=== PATIENT | female | born 1950 | race Hispanic/Latino ===

== ENCOUNTER 2016-08-19 14:30 | Emergency (ER) | payer MEDICARE, MEDICAID ==
[2015-12-09 09:30] VITALS: BMI 15.7
== END 2016-08-19 16:00 | disposition left against medical advice (07) ==
LOC: ED 14:30
DX: R53.1 Weakness (principal)

== ENCOUNTER 2016-10-02 00:08 | Emergency (ER) | payer MEDICARE, MEDICAID ==
[2016-10-02 00:18] VITALS: BMI 23.0
--- NOTE | 2016-10-02 01:06 | ED PDOC ---
Arrival/HPI - General Chief Complaint: Psychiatric Evaluation Time Seen by Provider: 10/02/16 00:49 Historian: Patient, Family - History of Present Illness Narrative History of Present Illness (Text): 10/02/16 01:05 Katerina Rico is a 66 year old female, whose past medical history includes schizophrenia, tardive dyskinesia with psychogenic polydipsia, and COPD, who presents to the Emergency department brought in by EMS from home for further evaluation. As per from collateral information from family, patient has been non -compliant with her psychiatric medications. Patient when questioned states she feels fine and denies any other somatic complaints. Patient is difficult to understand at times secondary to tardive dyskinesia. Symptom Onset: Gradual Symptom Course: Unchanged Activities at Onset: Light Context: Home Past Medical History - Provider Review Nursing Documentation Reviewed: Yes - Infectious Disease Hx of Infectious Diseases: None - Tetanus Immunization Tetanus Immunization: Unknown - Cardiac Hx Pacemaker: No - Neurological Hx Paralysis: No - Hematological/Oncological Hx Blood Transfusions: No - Musculoskeletal/Rheumatological Hx Musculoskeletal Disorders: Yes (TARDIVE DYSKINESIA) - Psychiatric Hx Emotional Abuse: No Hx Physical Abuse: No Hx Substance Use: No - Past Surgical History Past Surgical History: No Previous - Anesthesia Hx Anesthesia Reactions: No Hx Malignant Hyperthermia: No - Suicidal Assessment Feels Threatened In Home Enviroment: No Family/Social History - Physician Review Nursing Documentation Reviewed: Yes Family/Social History: Unknown Family HX Smoking Status: Heavy Smoker > 10 Cigarettes Daily Hx Alcohol Use: Yes (BEER ON OCCASION) Hx Substance Use: No Hx Substance Use Treatment: No Allergies/Home Meds Allergies/Adverse Reactions: Allergies codeine Allergy (Verified 12/09/15 09:48) RASH flu shot Allergy (Uncoded 12/09/15 09:48) RASH Home Medications: Home Meds Medication Instructions Recorded Confirmed Acetaminophen [Tylenol] 2 tab PO QID 11/11/14 12/09/15 Paroxetine HCl [Paxil] 40 mg PO DAILY 12/09/15 12/09/15 Risperidone [Risperdal] 3 mg PO HS 12/09/15 12/09/15 Review of Systems - Physician Review All systems were reviewed & negative as marked: Yes - Review of Systems Constitutional: Normal. absent: Fevers Eyes: Normal ENT: Normal Respiratory: Normal. absent: SOB, Cough Cardiovascular: Normal. absent: Chest Pain Gastrointestinal: Normal. absent: Abdominal Pain, Diarrhea, Nausea, Vomiting Genitourinary Female: Normal. absent: Dysuria, Frequency, Hematuria, Urine Output Changes Musculoskeletal: Normal. absent: Back Pain, Neck Pain Skin: Normal. absent: Rash Neurological: Normal. absent: Headache, Dizziness Endocrine: Normal Hemo/Lymphatic: Normal Psychiatric: Other (+non-compliant with psych meds) Physical Exam Vital Signs Reviewed: Yes Vital Signs Temp Pulse Resp BP Pulse Ox 10/02/16 00:28 98.4 F 87 17 115/65 96 Temperature: Afebrile Blood Pressure: Normal Pulse: Regular Respiratory Rate: Normal Appearance: Positive for: Well-Appearing, Non-Toxic, Comfortable, Unkept Pain Distress: None Mental Status: Positive for: Alert and Oriented X 3 - Systems Exam Head: Present: Atraumatic, Normocephalic Pupils: Present: PERRL Extroacular Muscles: Present: EOMI Conjunctiva: Present: Normal Mouth: Present: Moist Mucous Membranes Neck: Present: Normal Range of Motion Respiratory/Chest: Present: Clear to Auscultation, Good Air Exchange. No: Respiratory Distress, Accessory Muscle Use Cardiovascular: Present: Regular Rate and Rhythm, Normal S1, S2. No: Murmurs Abdomen: Present: Normal Bowel Sounds. No: Tenderness, Distention, Peritoneal Signs Upper Extremity: Present: Normal Inspection. No: Cyanosis, Edema Lower Extremity: Present: Normal Inspection. No: Edema Neurological: Present: GCS=15, CN II-XII Intact, Other (Tardive dyskinesia) Skin: Present: Warm, Dry, Normal Color. No: Rashes Psychiatric: Present: Alert, Oriented x 3 Medical Decision Making ED Course and Treatment: 10/02/16 01:05 Impression: 66 year old female brought in by EMS for non-compliance with psychiatric medication. Plan: -- EKG -- Chest X-ray -- Labs, alcohol level -- Urine drug screen -- Reassess and disposition Prior Visits: Notes and results from previous visits were reviewed. On 08/19/2016, pt was seen in the Emergency department for weakness s/p fall. Pt left against medical advice. Progress Notes: Reviewed EKG, NSR at 76 bpm. Prolonged QT. Non-specific ST/T wave changes. 10/02/16 01:43 Reviewed radiology, Chest X-ray shows no acute processes. 10/02/16 04:07 Pt seen and evaluated by PES screener Jeanette. Pt for psych re-evaluation in the AM as well as APS consult. 10/02/16 07:00 Case endorsed to pending PES evaluation/APS consult. - Lab Interpretations Lab Results: 10/02/16 03:15 10/02/16 03:15 Lab Results 10/02/16 03:15: Urine Opiates Screen Negative, Urine Methadone Screen Negative, Ur Barbiturates Screen Negative, Ur Phencyclidine Scrn Negative, Ur Amphetamines Screen Negative, U Benzodiazepines Scrn Negative, U Oth Cocaine Metabols Negative, U Cannabinoids Screen Negative 10/02/16 03:15: Alcohol, Quantitative < 10 10/02/16 03:15: WBC 8.3 D, RBC 4.01, Hgb 11.2 L, Hct 32.9 L, MCV 82.0, MCH 27.9 , MCHC 34.0, RDW 14.3, Plt Count 234, MPV 8.1 10/02/16 03:15: Sodium 134, Potassium 3.3 L, Chloride 99, Carbon Dioxide 29, Anion Gap 9 L, BUN 7, Creatinine 0.5, Est GFR ( Amer) > 60, Est GFR (Non- Af Amer) > 60, Random Glucose 80, Calcium 9.0, Total Bilirubin 0.9, AST 33, ALT 51, Alkaline Phosphatase 69, Total Protein 5.7 L, Albumin 3.1, Globulin 2.6, Albumin/Globulin Ratio 1.2 I have reviewed the lab results: Yes - RAD Interpretation Radiology Orders: 10/02/16 00:58 CHEST PORTABLE [RAD] Stat Major Gifts Director: ED Physician - EKG Interpretation Interpreted by ED Physician: Yes Type: 12 lead EKG - Scribe Statement The provider has reviewed the documentation as recorded by the Mary Yin Provider Scribe Attestation: All medical record entries made by the Scribe were at my direction and personally dictated by me. I have reviewed the chart and agree that the record accurately reflects my personal performance of the history, physical exam, medical decision making, and the department course for this patient. I have also personally directed, reviewed, and agree with the discharge instructions and disposition. Disposition/Present on Arrival - Present on Arrival Any Indicators Present on Arrival: No History of DVT/PE: No History of Uncontrolled Diabetes: No Urinary Catheter: No History of Decub. Ulcer: No History Surgical Site Infection Following: None - Disposition Have Diagnosis and Disposition been Completed?: No Diagnosis: Schizophrenia Disposition Time: 07:00 Condition: STABLE Forms: [facility] ([place])
[2016-10-02 03:49] LABS: HEMOGLOBIN 11.2 g/dL (12.0-16.0); MEAN CORPUSCULAR HEMOGLOBIN 27.9 pg (25.0-35.0); MEAN PLATELET VOLUME 8.1 fl (7.0-11.0); RBC 4.01 10^6/uL (3.5-6.1); RED CELL DISTRIBUTION WIDTH 14.3 % (11.5-14.5); WHITE BLOOD COUNT 8.3 10^3/ul (4.5-11.0)
[2016-10-02 03:50] LABS: ALB/GLOB RATIO 1.2 (1.1-1.8); ALBUMIN 3.1 g/dL (3.0-4.8); ALT/SGPT 51 U/L (7-56); AST/SGOT 33 U/L (15-39); BLOOD UREA NITROGEN 7 mg/dL (7-21); GFR AFRICAN-AMERICAN > 60; GFR NON-AFRICAN AMERICAN > 60
[2016-10-02 04:04] LABS: BARBITURATES, UR NEGATIVE (NEGATIVE); BENZODIAZEPINES, UR NEGATIVE (NEGATIVE); OPIATES, UR NEGATIVE (NEGATIVE); PHENCYCLIDINE, UR NEGATIVE (NEGATIVE)
[2016-10-02 08:21] VITALS: RESP 16
--- NOTE | 2016-10-02 08:54 | RAD ---
HISTORY: medical clearance COMPARISON: 08/24/2014 FINDINGS: LUNGS: No active pulmonary disease. PLEURA: No significant pleural effusion identified, no pneumothorax apparent. CARDIOVASCULAR: Normal. OSSEOUS STRUCTURES: No significant abnormalities. VISUALIZED UPPER ABDOMEN: Normal. OTHER FINDINGS: None. IMPRESSION: No active disease.
[2016-10-02 12:46] VITALS: BP 103/71; TEMP 98; O2SAT 98
[2016-10-02 13:19] VITALS: PULSE 82
--- NOTE | 2016-10-02 16:00 | CARD ---
APPROVED REPORT EKG Measurement Heart [id number] <Conclusion> Normal sinus rhythm Possible Left atrial enlargement Prolonged QT Abnormal ECG
== END 2016-10-02 13:19 | disposition home or self-care (01) ==
LOC: ED 00:08
DX: F20.9 Schizophrenia, unspecified (principal)
CPT/HCPCS: 71010; 80053; 85027; 90791; 93005; 99285; G0480

== ENCOUNTER 2017-08-18 17:12 | Emergency (ER) | payer MEDICARE, MEDICAID ==
[2017-08-18 17:15] VITALS: BMI 23.0
[2017-08-18 17:35] VITALS: RESP 18; TEMP 98.4
--- NOTE | 2017-08-18 17:41 | ED PDOC ---
Arrival/HPI - General Historian: Patient EM Caveat: Language Barrier (difficult speech due to tardive dyskinesia) - History of Present Illness Time/Duration: Prior to Arrival Symptom Onset: Sudden Severity Level: Mild Activities at Onset: Other (sitting on wet stool and slipped off) - General Chief Complaint: Trauma Time Seen by Provider: 08/18/17 17:40 - History of Present Illness Narrative History of Present Illness (Text): 08/18/17 19:27 66 yo F with PMH of Osteoarthritis, COPD, schizophrenia, and tardive dyskinesia who presents s/p mechanical fall from wet stool with head trauma and laceration. HPI limited due to speech impediment from tardive dyskinesia. Reports went to sit down on a stool, not realizing it was wet, and when she stopped supporting her weight as she sat, she slide off the stool, fell forward , and struck the left side of her head. Denies LOC, confusion, lack of memories. Reports able to stand with support, EMS called and patient brought to Emergency department. Reports bleeding from laceration site, some oozing from laceration witnessed during exam. Denies vision changes, loss of vision, nausea, emesis, room-spinning, chest pain, shortness of breath, loss of bowel/ bladder control, paresthesias, or focal weakness. Has baseline tardive dyskinesias, witness throughout exam, mostly manifests as chronically changing leg positions. All other ROS in 12-system review negative. PMH: as above PSH: denies Fam Hx: unknown Soc Hx: 1ppd > 50 yrs, denies EtOH, denies illicits PMD: Dr. Robins ([facility]) Past Medical History - Provider Review Nursing Documentation Reviewed: Yes - Infectious Disease Hx of Infectious Diseases: None - Tetanus Immunization Tetanus Immunization: Unknown - Cardiac Hx Pacemaker: No - Pulmonary Hx Tuberculosis: No - Neurological Hx Paralysis: No - Hematological/Oncological Hx Blood Transfusions: No - Musculoskeletal/Rheumatological Hx Musculoskeletal Disorders: Yes (TARDIVE DYSKINESIA) - Genitourinary/Gynecological Hx Sexually Transmitted Diseases: No - Psychiatric Hx Anxiety: Yes Hx Depression: Yes Hx Substance Use: No - Past Surgical History Past Surgical History: No Previous - Anesthesia Hx Anesthesia Reactions: No Hx Malignant Hyperthermia: No - Suicidal Assessment Feels Threatened In Home Enviroment: No Family/Social History - Physician Review Nursing Documentation Reviewed: Yes Family/Social History: Unknown Family HX Smoking Status: Heavy Smoker > 10 Cigarettes Daily Hx Alcohol Use: Yes (BEER ON OCCASION) Hx Substance Use: No Hx Substance Use Treatment: No Allergies/Home Meds Allergies/Adverse Reactions: Allergies codeine Allergy (Verified 08/18/17 17:20) RASH flu shot Allergy (Uncoded 08/18/17 17:20) RASH Home Medications: Home Meds Medication Instructions Recorded Confirmed Paroxetine HCl [Paxil] 40 mg PO DAILY 12/09/15 08/18/17 Risperidone [Risperdal] 3 mg PO HS 12/09/15 08/18/17 Review of Systems - Review of Systems Constitutional: Normal. absent: Fatigue, Fevers Eyes: Normal. absent: Vision Changes, Photophobia, Eye Pain ENT: Normal. absent: Hearing Changes, Sore Throat, Rhinorrhea, Epistaxis, Sinus Congestion Respiratory: Normal. absent: SOB, Cough Cardiovascular: Normal. absent: Chest Pain, Palpitations, RODRIGUEZ, Syncope Gastrointestinal: Normal. absent: Abdominal Pain, Constipation, Diarrhea, Vomiting, Appetite Changes Genitourinary Female: Normal. absent: Dysuria, Frequency, Hematuria Musculoskeletal: Other (mild head pain, tenderness at site of laceration, mild oozing of bright red blood from forehead laceration) Neurological: Headache (mild headache 2/2 fall with head trauma), Other ( baseline speech impediment 2/2 tardive dyskinesia). absent: Dizziness, Focal Weakness, Facial Droop, Seizure Physical Exam Vital Signs Reviewed: Yes Temperature: Afebrile Blood Pressure: Normal Pulse: Regular Respiratory Rate: Normal Appearance: Positive for: Non-Toxic, Comfortable Pain Distress: Mild Mental Status: Positive for: Alert and Oriented X 3 - Systems Exam Head: Present: Tenderness (as site of laceration), Laceration (small curvilinear laceration intermittently oozing blood, 3-4cm in length), Other (no irma contusions or echymosis appreciated). No: Atraumatic, Normocephalic, Swelling, Ecchymosis Pupils: No: Pinpoint Extroacular Muscles: Present: EOMI Conjunctiva: Present: Normal. No: Injected, Icteric Mouth: Present: Moist Mucous Membranes, Normal Lips, Normal Tounge. No: Dry, Drooling Nose (External): Present: Atraumatic. No: Abrasion, Laceration Nose (Internal): Present: No Active Bleeding. No: Epistaxis Neck: Present: Normal Range of Motion, Trachea Midline. No: MIDLINE TENDERNESS , JVD Respiratory/Chest: Present: Clear to Auscultation, Good Air Exchange. No: Respiratory Distress, Accessory Muscle Use, Wheezes, Rales, Rhonchi, Tachypneic Cardiovascular: Present: Regular Rate and Rhythm, Normal S1, S2, Peripheal Pulses Present (+2 radials bilaterally). No: Murmurs, Irregular Rhythm, Tachycardic, Bradycardic Abdomen: Present: Normal Bowel Sounds. No: Tenderness, Distention Upper Extremity: Present: Normal Inspection, NORMAL PULSES, Other (limited hand ROM 2/2 tardive dyskinedia, otherwise normal ROM). No: Cyanosis, Edema, Tenderness, Swelling, Erythema, Deformity Lower Extremity: Present: Normal Inspection, Normal ROM. No: Edema, CALF TENDERNESS, Cyanosis, Tenderness, Swelling, Erythema, Deformity Neurological: Present: GCS=15, Motor Func Grossly Intact. No: Speech Normal ( limited 2/2 tardive dyskinesia) Skin: Present: Warm, Dry, Normal Color. No: Rashes Lymphatic: No: Cervical Adenopathy Psychiatric: Present: Alert, Oriented x 3 (x4: self, location, year, president) , Normal Insight, Normal Concentration, Normal Affect, Normal Mood Vital Signs Temp Pulse Resp BP Pulse Ox 08/18/17 18:45 78 18 128/79 99 08/18/17 17:30 98.4 F 82 18 108/67 97 Medical Decision Making ED Course and Treatment: 08/18/17 19:49 Ddx: mechanical fall 2/2 wet surface vs 2/2 osteoarthritis, rule out acute intracranial process Patient refusing head CT, only will allow laceration repair, then wants to leave AMA. Please see attached procedure note for further details. Laceration repair completed, patient then left against medical advice. AMA paper filled out, signed by patient, witnessed by nursing. Pt seen, reviewed, and discussed with attending, Dr. Tracey. (Jimy Causey) 08/19/17 08:08 pt [facility]w [facility] s/p mechanicl fall refuses imaging only wants lac repair. advise outpt fu return precautions (Clifford Tracey) - Medication Orders Current Medication Orders: Discontinued Medications Lidocaine/Epinephrine (Lidocaine 1%/Epinephrine [id number] 30 Ml) 30 ml IJ ONCE ONE Stop: 08/18/17 17:51 Last Admin: 08/18/17 18:02 Dose: 30 ml Procedure: Wound Repair - Time Performed Time Performed: 18:30 - Time Out Time Out: Side verified, Site verified, Patient ID confirmed, Sterile procedures obs. - Consent Obtained Consent obtained: Verbal - Performed by Performed by: Mid-level Provider - Indications Indication(s):: Laceration - Location Location:: Left, Lateral, Face Shape:: Curvilinear Dimensions Length cm: 3-4 cm Dimensions width cm: 5mm at widests Depth:: Epidermis - Anesthetic Technique Anesthetic Technique: Local Local/Regional Anesthetic:: Lidocaine 1% w/epi - Wound Examination Wound Examination:: Other (actively slow oozing of blood, no deep structures appreciated, no large bleeding vessels or nerves appreciated on exam) - Debris Debris:: None - Irrigated Irrigated with ml of normal saline: 3 cc normal saline - Complexity Complexity:: Simple (one layer) - Wound repair method Sutures:: # (3), Size (Proline 5-0), Technique (Interrupted) - Complications Complications: None - Patient tolerated procedure Patient Tolerated Procedure:: Well Disposition/Present on Arrival - Present on Arrival Any Indicators Present on Arrival: No History of DVT/PE: No History of Uncontrolled Diabetes: No Urinary Catheter: No History of Decub. Ulcer: No History Surgical Site Infection Following: None - Disposition Have Diagnosis and Disposition been Completed?: Yes Disposition Time: 19:00 - Disposition Diagnosis: Left against medical advice, Head injury, Laceration Disposition: AGAINST MEDICAL ADVICE Condition: GUARDED Discharge Instructions (ExitCare): Closed Head Injury (DC), Head Injury Observation (DC), Leaving Against Medical Advice Additional Instructions: you are declinign ct scan. you are able to return to er with worsening symptoms or concern. Referrals: Dominguez Curry MD [Staff Provider] - Follow up with primary Mateusz Robins MD [Primary Care Provider] - Follow up with primary Forms: [employer] (Persian)
[2017-08-18] MEDS ORDERED: Lidocaine 1%/Epinephrine 1:100000 30 ml vial IJ ONE (17:50)
[2017-08-18 18:46] VITALS: BP 128/79; PULSE 78; O2SAT 99
== END 2017-08-18 18:44 | disposition left against medical advice (07) ==
LOC: ED 17:12
DX: S01.81XA Laceration without foreign body of other part of head, initial encounter (principal); W19.XXXA Unspecified fall, initial encounter; F20.9 Schizophrenia, unspecified; J44.9 Chronic obstructive pulmonary disease, unspecified; F17.210 Nicotine dependence, cigarettes, uncomplicated

== ENCOUNTER 2018-02-28 19:56 | Inpatient (IN) | payer MEDICARE, MEDICAID ==
[2018-02-28 20:26] VITALS: BMI 15.6
[2018-02-28] MEDS ORDERED: Sodium Chloride 0.9% 500 ML IV STA (20:53)
[2018-02-28] MEDS ORDERED: TDAP Vaccine 0.5 mL Syr IM ONE (20:53)
[2018-02-28 21:28] LABS: ALB/GLOB RATIO 1.6 (1.1-1.8); ALBUMIN 4.2 g/dL (3.0-4.8); ALT/SGPT 30 U/L (7-56); AST/SGOT 37 U/L (14-36); BLOOD UREA NITROGEN 21 mg/dL (7-21); CALCIUM 9.5 mg/dL (8.4-10.5); GFR NON-AFRICAN AMERICAN > 60
[2018-02-28 21:33] LABS: BASO % 0.4 % (0.0-3.0); EOS % 1.1 % (1.5-5.0); GRAN % 71.7 % (50.0-68.0); HEMOGLOBIN 13.1 g/dL (12.0-16.0); LYMPH % 15.6 % (22.0-35.0); MEAN CELL VOLUME 84.7 fl (80.0-105.0); MEAN CORPUSCULAR HEMOGLOBIN 28.3 pg (25.0-35.0); MEAN CORPUSCULAR HGB CONC 33.4 g/dl (31.0-37.0); MEAN PLATELET VOLUME 9.2 fl (7.0-11.0); MONO % 11.2 % (1.0-6.0); RBC 4.63 10^6/uL (3.5-6.1); RED CELL DISTRIBUTION WIDTH 13.8 % (11.5-14.5); WHITE BLOOD COUNT 7.3 10^3/uL (4.5-11.0)
[2018-02-28 21:34] LABS: BASO # 0.03 K/mm3 (0.0-2.0); EOS # 0.1 (0.0-0.7); GRAN # 5.21 (1.4-6.5); LYMPH # 1.1 (1.2-3.4); MONO # 0.8 (0.1-0.6)
[2018-02-28 21:35] LABS: INR 1.01; PARTIAL THROMBOPLASTIN TIME 28.3 Seconds (25.1-36.5); PROTHROMBIN TIME 11.5 SECONDS (9.4-12.5)
[2018-02-28 21:40] LABS: TROPONIN I 0.07 ng/mL
--- NOTE | 2018-02-28 22:13 | ED PDOC ---
Arrival/HPI - General Chief Complaint: Trauma Time Seen by Provider: 02/28/18 19:59 Historian: Patient - History of Present Illness Narrative History of Present Illness (Text): 02/28/18 22:13 A 67 year old female, whose past medical history includes osteoarthritis, COPD, schizophrenia, and tardive dyskinesia, presents to the emergency department complaining of laceration to head s/p fall. Patient reports she experiences weakness to her right leg normally and uses a cane/walker. Today, patient felt her legs gave out on her, and resulted in falling in her bathroom, sustaining a laceration to her right head. States she was asymptomatic prior to fall. Patient denies any LOC, headache, dizziness, chest pain, shortness of breath, nausea, vomiting, or any other complaints at this time. Past Medical History - Provider Review Nursing Documentation Reviewed: Yes - Infectious Disease Hx of Infectious Diseases: None - Tetanus Immunization Tetanus Immunization: Unknown - Cardiac Hx Cardiac Disorders: No - Pulmonary Hx Respiratory Disorders: No - Neurological Hx Neurological Disorder: No - HEENT Hx HEENT Disorder: No - Renal Hx Renal Disorder: No - Endocrine/Metabolic Hx Endocrine Disorders: No - Hematological/Oncological Hx Blood Disorders: No - Integumentary Hx Dermatological Disorder: No - Musculoskeletal/Rheumatological Hx Musculoskeletal Disorders: Yes (TARDIVE DYSKINESIA) - Gastrointestinal Hx Gastrointestinal Disorders: No - Genitourinary/Gynecological Hx Genitourinary Disorders: No - Psychiatric Hx Psychophysiologic Disorder: Yes Hx Anxiety: Yes Hx Depression: Yes Hx Substance Use: No - Past Surgical History Past Surgical History: No Previous - Anesthesia Hx Anesthesia Reactions: No Hx Malignant Hyperthermia: No - Suicidal Assessment Feels Threatened In Home Enviroment: No Family/Social History - Physician Review Nursing Documentation Reviewed: Yes Family/Social History: No Known Family HX Smoking Status: Heavy Smoker > 10 Cigarettes Daily Hx Alcohol Use: Yes (BEER ON OCCASION) Hx Substance Use: No Hx Substance Use Treatment: No Allergies/Home Meds Allergies/Adverse Reactions: Allergies codeine Allergy (Verified 02/28/18 20:30) RASH flu shot Allergy (Uncoded 02/28/18 20:30) RASH Home Medications: Home Meds Medication Instructions Recorded Confirmed Paroxetine HCl [Paxil] 40 mg PO DAILY 12/09/15 08/18/17 Risperidone [Risperdal] 3 mg PO HS 12/09/15 08/18/17 Review of Systems - Physician Review All systems were reviewed & negative as marked: Yes - Review of Systems Respiratory: absent: SOB Cardiovascular: absent: Chest Pain Gastrointestinal: absent: Nausea, Vomiting Skin: Laceration (right-side head) Neurological: absent: Headache, Dizziness, Other (no LOC) Physical Exam Vital Signs Reviewed: Yes Vital Signs Temp Pulse Resp BP Pulse Ox 02/28/18 20:22 98.0 F 91 H 19 122/65 97 Temperature: Afebrile Blood Pressure: Normal Pulse: Regular Respiratory Rate: Normal Appearance: Positive for: Well-Appearing, Non-Toxic, Comfortable Pain Distress: None Mental Status: Positive for: Alert and Oriented X 3 - Systems Exam Head: Present: Laceration (one-side medial laceration to right-side scalp) Pupils: Present: PERRL Extroacular Muscles: Present: EOMI Conjunctiva: Present: Normal Mouth: Present: Dry (very dry) Neck: Present: Normal Range of Motion Respiratory/Chest: Present: Clear to Auscultation, Good Air Exchange. No: Respiratory Distress, Accessory Muscle Use Cardiovascular: Present: Regular Rate and Rhythm, Normal S1, S2. No: Murmurs Abdomen: No: Tenderness, Distention, Peritoneal Signs Back: Present: Normal Inspection Upper Extremity: Present: Normal Inspection. No: Cyanosis, Edema Lower Extremity: Present: Normal Inspection. No: Edema Neurological: Present: GCS=15, CN II-XII Intact, Speech Normal Skin: Present: Warm, Dry, Normal Color. No: Rashes Psychiatric: Present: Alert, Oriented x 3, Normal Insight, Normal Concentration Medical Decision Making ED Course and Treatment: 02/28/18 22:14 Impression: 67 year old female with right-side head laceration. Physical exam shows one side medial laceration to right-side scalp; very dry mucous membranes; otherwise no other acute findings on examination. Plan: -- EKG -- Chest X-ray -- Head CT -- Labs -- Urine Culture -- Urinalysis -- Urinalysis -- Boostrix Vaccine -- Reassess and disposition Prior Visits: Notes and results from previous visits were reviewed. Patient was last seen here in the emergency department on 08/18/2017 for head trauma and laceration. Patient left against medical advice. Progress Notes: EKG: NSR at 91 bpm, (-) acute ST changes, as read by PA. Laceration repair performed by SHANITA. Patient tolerated the procedure well. On reevaluation, patient remains awake alert and oriented 3 in no acute distress. Patient unable to lay still in bed for CT. Patient given ativan 0.5 mg IV. Labs reviewed. CXR : NAD, as read by SHANITA CT head : no acute evidence of acute traumatic brain pathology. Kristyn Sweet 03/01/18 0142. Case d/w Dr. Barakat, agrees with plan for observation to remote tele with consult to Dr. Galan and Dr. Abraham. - Lab Interpretations Lab Results: PT 11.5 SECONDS (9.4-12.5) 02/28/18 21:11 INR 1.01 02/28/18 21:11 APTT 28.3 Seconds (25.1-36.5) 02/28/18 21:11 Troponin I 0.07 ng/mL D 02/28/18 21:11 Total Bilirubin 0.9 mg/dL (0.2-1.3) 02/28/18 21:11 AST 37 U/L (14-36) H 02/28/18 21:11 ALT 30 U/L (7-56) 02/28/18 21:11 Alkaline Phosphatase 88 U/L (38-126) 02/28/18 21:11 Total Protein 6.8 g/dL (5.8-8.3) 02/28/18 21:11 Albumin 4.2 g/dL (3.0-4.8) 02/28/18 21:11 Globulin 2.7 gm/dL 02/28/18 21:11 Albumin/Globulin Ratio 1.6 (1.1-1.8) 02/28/18 21:11 - RAD Interpretation Radiology Orders: 02/28/18 20:51 HEAD W/O CONTRAST [CT] Stat 02/28/18 20:52 CHEST PORTABLE [RAD] Stat - Medication Orders Current Medication Orders: Discontinued Medications Sodium Chloride (Sodium Chloride 0.9%) 500 mls @ 500 mls/hr IV .Q1H STA Stop: 02/28/18 21:52 Last Admin: 02/28/18 21:07 Dose: 500 mls/hr eMAR Start Stop Document 02/28/18 21:07 LA (Rec: 02/28/18 21:07 LA [id number]) Intravenous Solution Start Date 02/28/18 Start Time 21:07 End Date 02/28/18 End time 22:07 Total Infusion Time 60 Tetanus/Reduced Diphtheria/Acell Pertussis (Boostrix Vaccine Inj) 0.5 ml IM .ONCE ONE Stop: 02/28/18 20:54 Last Admin: 02/28/18 21:07 Dose: 0.5 ml Immunization Registry Document 02/28/18 21:07 VARSHA (Rec: 02/28/18 21:07 LA [id number]) [facility]-Date provided 02/28/18 MAR Immunization Data Document 02/28/18 21:07 LA (Rec: 02/28/18 21:07 LA [id number]) Immunization Data Vaccine Information Sheet Given Yes - PA / LAN SPECIALIST / Resident Statement MD/DO has reviewed & agrees with the documentation as recorded. - Scribe Statement The provider has reviewed the documentation as recorded by the Reginaibahsan Schmitz Provider Scribe Attestation: All medical record entries made by the Scribe were at my direction and personally dictated by me. I have reviewed the chart and agree that the record accurately reflects my personal performance of the history, physical exam, medical decision making, and the department course for this patient. I have also personally directed, reviewed, and agree with the discharge instructions and disposition. Disposition/Present on Arrival - Present on Arrival Any Indicators Present on Arrival: No History of DVT/PE: No History of Uncontrolled Diabetes: No Urinary Catheter: No History of Decub. Ulcer: No History Surgical Site Infection Following: None - Disposition Have Diagnosis and Disposition been Completed?: Yes Diagnosis: Weakness, Head injury, Scalp laceration, Elevated troponin Disposition: HOSPITALIZED Disposition Time: :30 Patient Plan: Observation Condition: STABLE Discharge Instructions (ExitCare): Weakness (ED) Forms: [employer] (Ukrainian)
[2018-02-28 23:58] LABS: PH,URINE 6.5 (4.7-8.0); URINE BILIRUBIN NEGATIVE (NEGATIVE); URINE BLOOD SMALL (NEGATIVE); URINE GLUCOSE (UA) NEGATIVE (NEGATIVE); URINE LEUKOCYTE ESTERASE LARGE Leu/uL (NEGATIVE); URINE PROTEIN NEGATIVE mg/dL (<30 mg/dL); URINE UROBILINOGEN 0.2 E.U./dL (<1 E.U./dL)
[2018-02-28 23:59] LABS: URINE APPEARANCE SL CLOUDY (CLEAR); URINE COLOR STRAW (YELLOW)
[2018-03-01 00:13] LABS: URINE RBC 0 - 2 /hpf (0-2)
[2018-03-01 00:14] LABS: URINE BACTERIA FEW /hpf
--- NOTE | 2018-03-01 09:27 | RAD ---
Date of service: 02/28/2018 HISTORY: fall COMPARISON: 10/02/2016 FINDINGS: LUNGS: No active pulmonary disease. PLEURA: No significant pleural effusion identified, no pneumothorax apparent. CARDIOVASCULAR: No aortic atherosclerotic calcification present. Normal cardiac size. No pulmonary vascular congestion. OSSEOUS STRUCTURES: No significant abnormalities. VISUALIZED UPPER ABDOMEN: Normal. OTHER FINDINGS: None. IMPRESSION: No active disease.
[2018-03-01 09:44] LABS: ALB/GLOB RATIO 1.4 (1.1-1.8); ALBUMIN 3.3 g/dL (3.0-4.8); ALT/SGPT 28 U/L (7-56); AST/SGOT 29 U/L (14-36); BLOOD UREA NITROGEN 15 mg/dL (7-21); CALCIUM 8.8 mg/dL (8.4-10.5); GFR NON-AFRICAN AMERICAN > 60; HDL CHOLESTEROL 64 mg/dL (29-60)
[2018-03-01 09:52] LABS: TROPONIN I 0.03 ng/mL
[2018-03-01 09:53] LABS: LDL CHOLESTEROL 77 mg/dL (0-129)
[2018-03-01 10:05] LABS: FREE T4 1.07 ng/dL (0.78-2.19)
--- NOTE | 2018-03-01 10:19 | CT ---
Date of service: 02/28/2018 PROCEDURE: CT HEAD WITHOUT CONTRAST. HISTORY: fall COMPARISON: Noncontrast head CT performed 08/23/14 TECHNIQUE: Axial computed tomography images were obtained through the head/brain without intravenous contrast. Radiation dose: Total exam DLP = 909.09 mGy-cm. This CT exam was performed using one or more of the following dose reduction techniques: Automated exposure control, adjustment of the mA and/or kV according to patient size, and/or use of iterative reconstruction technique. FINDINGS: . Examination limited due to patient motion. HEMORRHAGE: No intracranial hemorrhage. BRAIN: Diffuse atrophy with prominence of the ventricles and sulci noted. No mass effect or edema. Scattered periventricular and subcortical white matter hypodensities, which are nonspecific, but often seen with chronic microvascular ischemic disease. Please note that MRI with diffusion imaging is more sensitive in the detection of acute ischemic event. VENTRICLES: No hydrocephalus. CALVARIUM: Unremarkable. PARANASAL SINUSES: Unremarkable as visualized. No significant inflammatory changes. MASTOID AIR CELLS: Unremarkable as visualized. No inflammatory changes. OTHER FINDINGS: Small right parietal soft tissue swelling. Suspect bilateral nasal bone fracture deformities. IMPRESSION: No acute intracranial pathology identified. Nonspecific white matter changes. Generalized atrophy. Small right parietal soft tissue swelling. Suspect bilateral nasal bone fracture deformities. Correlate clinically. Preliminary impression was provided by [employer]. Study marked for PA review.
[2018-03-01] MEDS: cefTRIAXone 1 gm 1 GM/100 ML BAG IVPB SCH (10:51)
[2018-03-01 11:26] LABS: BASO # 0.04 K/mm3 (0.0-2.0); BASO % 0.9 % (0.0-3.0); EOS # 0.1 (0.0-0.7); EOS % 1.4 % (1.5-5.0); GRAN # 2.98 (1.4-6.5); GRAN % 67.7 % (50.0-68.0); HEMOGLOBIN 11.7 g/dL (12.0-16.0); LYMPH # 0.8 (1.2-3.4); MEAN CELL VOLUME 85.1 fl (80.0-105.0); MEAN CORPUSCULAR HEMOGLOBIN 28.1 pg (25.0-35.0); MEAN CORPUSCULAR HGB CONC 33.1 g/dl (31.0-37.0); MEAN PLATELET VOLUME 8.9 fl (7.0-11.0); MONO # 0.6 (0.1-0.6); RBC 4.16 10^6/uL (3.5-6.1); RED CELL DISTRIBUTION WIDTH 13.8 % (11.5-14.5); WHITE BLOOD COUNT 4.4 10^3/uL (4.5-11.0)
--- NOTE | 2018-03-01 11:58 | CP.PCM.PCO ---
Physician Communication Note - Physician Communication Note Physician Communication Note: UTI/Rocephin, cardiology following, PT eval pending
--- NOTE | 2018-03-01 19:14 | CON ---
DATE: 03/01/2018 CARDIOLOGY CONSULTATION REASON FOR CONSULTATION: Cardiac evaluation, status post fall, and elevated troponin. BRIEF CLINICAL HISTORY: This is a 67-year-old female with a past medical history significant for osteoarthritis, COPD, schizophrenia, tardive dyskinesia, who is weak and cachectic, who was experiencing weakness of lower extremity, walks with a cane and walker, but she thinks that leg gave up and fell down in the bathroom, sustained lacerated wound on the right head. The patient denies any chest pain, shortness of breath, or any palpitation, but the patient had troponin on admission was abnormal, so Cardiology consult was called. The patient denies any chest pain; denies any shortness of breath; denies any palpitation. PAST MEDICAL HISTORY: Significant for tardive dyskinesia; schizophrenia; generalized weakness; COPD; osteoarthritis; weakness of lower extremity, walks with a cane; and history of depression and psychiatric disorder. SOCIAL HISTORY: Lives with her mother; smokes one pack a day; and occasionally drinks. ALLERGIES: FLU VACCINE, CODEINE AND HAS A HISTORY OF LOSS OF CONSCIOUS IN THE PAST WITH THE CODEINE. CURRENT MEDICATIONS: The patient at home is taking risperidone 3 mg at bedtime and Paxil 40 mg in the morning. REVIEW OF SYSTEMS: As per HPI. PHYSICAL EXAMINATION: As follows; GENERAL: Height of the patient 5 feet 5 inches, weight of the patient 94 pounds, body mass index 15 kg/m2. VITAL SIGNS: Temperature afebrile, heart rate 65, and blood pressure 122/73. HEENT: PERRLA. Extraocular muscles intact. NECK: Supple. No carotid bruits or thyromegaly. CHEST: Clear to auscultation. HEART: S1 and S2 regular. ABDOMEN: Soft. EXTREMITIES: Clubbing and cyanosis negative. LABORATORY DATA: Blood workup as follows; WBC , hemoglobin 13.1, hematocrit 39.2, and platelet count 222. Chemistry shows sodium 134, potassium 4, chloride 100, carbon dioxide 25, anion gap of 12, BUN 21, creatinine 0.8. Troponin 0.08 and 0.05. Repeat CPK pending. EKG shows normal sinus rate of 97, Q waves in II, III, and aVF. IMPRESSION AND PLAN: A 67-year-old female with a past medical history of tardive dyskinesia, psychiatric disorder, schizophrenia, chronic obstructive pulmonary disease, osteoarthritis, weakness of lower extremity, fell down and sustained lacerated wound. Troponin indeterminate, most likely secondary to elevated CPK. We will fractionate total CPK and troponin. We will get orthostatic hypotension. We will get echocardiogram to assess left ventricular function. Doubt it is myocardial infarction. No complaint of chest pain or cardiac symptoms. We will get echocardiogram to assess left ventricular function, lipid profile, TSH, and hemoglobin A1c, and we will follow with you. When compared the electrocardiogram from 08/23/2014, the patient has normal sinus with Q waves in II, III, and aVF. No change in electrocardiogram from 08/23/2014, so the patient has poor R-R progression small Q waves in II, III, and aVF similar as of today. We will follow. We will get also orthostatic blood pressure. Thank you Dr. Robins for providing us the opportunity in taking care of the patient, Katerina Rico. Leisa Zhang MD
--- NOTE | 2018-03-01 20:21 | CARD ---
APPROVED REPORT Date of service: 02/28/2018 EKG Measurement Heart [id number] <Conclusion> Normal sinus rhythm Normal Electrocardiogram
--- NOTE | 2018-03-01 20:22 | CON ---
DATE: 03/01/2018 HISTORY OF PRESENT ILLNESS: In short, the patient is a 67-year-old female with multiple medical issues including osteoporosis, COPD. The patient also has history of severe mental illness, history of schizophrenia, and tardive dyskinesia. The patient was admitted on the medical site status post fall and laceration to her head status post fall. Psych consult was called for evaluation of medications and the patient has history of mental illness as well as tardive dyskinesia. The patient was seen and examined, discussed with primary care physician Dr. Robins. As per Dr. Robins, the patient suffered from schizophrenia for many years. The patient was given strong neuroleptic drugs since 1969, which caused the patient severe tardive dyskinesia. As per Dr. Robins, TD might affect the patient's gait and the patient has history of falling. At present moment, the patient is on Risperdal 3 mg at the nighttime, which is provided by [facility] psychiatrist. As per Dr. Robins, the patient has psychiatrist tried to wean the patient off from Risperdal, but the patient presented much worse. At present moment as per Dr. Robins, the patient is at her baseline, but at the same time, primary care team is wondering if it is possible the medication was less chance for the patient to continue to have tardive dyskinesia or elevate her TD symptoms. The patient was seen and examined. The patient has lip smacking. The patient has difficulties to express herself, also was constantly moving. The patient reported that she sees psychiatrist in [facility]. The patient reported that she does not hear any voices, does not see anything unusual. The patient reported history of paranoia. As per collateral information, the patient lives in [place] with her mother as well as sister. The patient denied thoughts of harming herself or others. VITAL SIGNS: Vital signs reviewed. The patient's temperature is 98.4, pulse 72, blood pressure 124/75, respirations 26, and oxygen saturation is 96. MEDICATIONS: Medications reviewed. Rocephin, Paxil, Seroquel will be implemented 12.5 mg at the nighttime because this medication is less chance for the patient to have worsening of tardive dyskinesia. Risperdal will be decreased to 1 mg twice a day with a plan to wean it off. LABORATORY DATA: Labs reviewed from today. Urinalysis showed leukocyte esterase large. MENTAL STATUS EXAMINATION: The patient presented to be alert, restless, lip smacking. Mood described as okay. Affect was blunted. Thought process concrete. Thought content, the patient denied any perceptual disturbances. The patient denied feeling paranoid. Speech, garbled and very hard to understand. Insight and judgment seems to be fair. Impulses are well controlled. IMPRESSION: As per history of schizophrenia, tardive dyskinesia. PLAN: It would be not possible for the patient to be on Clozaril because the patient is to have blood work on weekly basis. The less potent medication is Seroquel, we will implement that medication with a plan to increase that slowly, also decrease Risperdal from 3 mg to 2 mg a day. Sleeping medication might be helpful. Also check for benzodiazepines, but considering the fact that the patient fell and have laceration on her head, this inspector automatic typewriter will not take that chance. On top of that, ECT might be helpful but this inspector automatic typewriter needs to check the literature about ECT for tardive dyskinesia and psychotic patient. We will follow up and advise accordingly. Care of this patient took more than 45 minutes of this inspector automatic typewriter's time. Thank you very much for letting me participate in the care of your patient. Dr. Fuchs will see the patient over the weekend. Leigh Gomez MD
--- NOTE | 2018-03-02 09:21 | CP.PCM.PN ---
Subjective - Date & Time of Evaluation Date of Evaluation: 03/02/18 Time of Evaluation: 06:25 - Subjective Subjective: Awake, no distress Reason for consultation and follow up:Cardiac evaluation of elevated troponin, status post fall, history of osteoarthritis, COPD, schizophrenia, and tardive dyskinesia Seen and examined by me and Dr. Galan Objective - Vital Signs/Intake and Output Vital Signs (last 24 hours): Temp Pulse Resp BP Pulse Ox 98.1 F 64 20 136/77 97 03/02/18 05:46 03/02/18 05:46 03/02/18 05:46 03/02/18 05:46 03/02/18 05:46 Intake and Output: 03/02/18 03/02/18 06:59 18:59 Intake Total 2080 Output Total 3050 Balance -970 - Medications Medications: Current Medications Ceftriaxone Sodium (Rocephin 1 Gram Ivpb) 1 gm in 100 mls @ 100 mls/hr IVPB [facility]ISA LY [facility]; Protocol Last Admin: 03/01/18 10:51 Dose: 100 mls/hr Nicotine (Nicoderm Cq) 1 patch TD DAILY [facility] Last Admin: 03/01/18 22:13 Dose: 1 patch Paroxetine HCl (Paxil) 40 mg PO DAILY [facility] Last Admin: 03/01/18 10:51 Dose: 40 mg Quetiapine Fumarate (Seroquel) 12.5 mg PO HS [facility]; Protocol Last Admin: 03/01/18 21:36 Dose: 12.5 mg Risperidone (Risperdal Tab) 1 mg PO BID [facility]; Protocol Last Admin: 03/01/18 17:16 Dose: 1 mg - Labs Labs: 03/01/18 11:10 03/01/18 09:25 PT 11.5 SECONDS (9.4-12.5) 02/28/18 21:11 INR 1.01 02/28/18 21:11 APTT 28.3 Seconds (25.1-36.5) 02/28/18 21:11 - Constitutional Appears: Non-toxic, No Acute Distress - ENT Exam ENT Exam: Mucous Membranes Dry - Respiratory Exam Respiratory Exam: Decreased Breath Sounds, NORMAL BREATHING PATTERN - Cardiovascular Exam Cardiovascular Exam: REGULAR RHYTHM, +S1, +S2 - GI/Abdominal Exam GI & Abdominal Exam: Soft, Normal Bowel Sounds - Neurological Exam Neurological Exam: Alert, Awake - Psychiatric Exam Psychiatric exam: Normal Affect, Normal Mood - Skin Skin Exam: Dry, Normal Color, Warm Assessment and Plan - Assessment and Plan (Free Text) Assessment: A 67 year old female who cme in to the ER due to fall having a laceration on the right side of head. Repair of laceration was done in the ER. History includes osteoarthritis, COPD, schizophrenia, and tardive dyskinesia, weakness of lower extremities, walks with cane.Active smoker. Her leg gave up and fell in the bathroom hitting her head. CT of head negative for bleeding. Elevated troponin so cardiac consult was called. Troponin level-0.08/ 0.07/0.05/0.03. trending down. Denies chest pain or shortness of breath. Urinary tract infection, on antibiotics. For Echo to evaluate LV function. Rule out orthostatic hypotension. Will get orthostatic vital signs. Plan: For echo today No distress, no shortness of breath Heart rate and blood pressure stable Continue current treatment Awaiting orthostatic vital signs On IV antibiotics for UTI Smoking cessation On Nicotine patch Will follow up Plan and treatment discussed with Dr. Galan
[2018-03-02] MEDS: cefTRIAXone 1 gm 1 GM/100 ML BAG IVPB SCH (10:10)
--- NOTE | 2018-03-02 13:28 | CON ---
DATE: 03/01/2018 HISTORY OF PRESENT ILLNESS: The patient is a 67-year-old female with history of severe mental illness including schizophrenia and tardive dyskinesia, who is being seen by Psychiatry on the medical site for medication management as there was concern that the patient's TD was contributing to the patient's difficulty with gait and falling. I reviewed Dr. Gomez's consultation which indicated plan to cross-taper Risperdal to Seroquel, and the patient's Seroquel 12.5 mg, Risperdal was decreased to 1 mg twice a day yesterday. The patient's overall functioning appears to be same. She is disoriented when I met with her at bedside this morning and speech continues to be slurred and difficult to comprehend even though few repetition. The patient is aware that she is in the hospital; however, she is quite confused and does not appear to have much capacity to understand her medication recommendation and the reason for them at this time. However, I did repeat current psychiatric circumstances to her and she is fairly calm and intermittently cooperative if not coherent. She does not appear to be actively hallucinating and her only discomfort reported was with her toes versus her toenails. She has been restless overnight and received 1 mg IV Ativan as she kept continue to get out of bed. The patient appears to be disorganized and it is unclear whether this is due to schizophrenia, delirium or both. Her insight and judgment are poor. PHYSICAL EXAMINATION: VITAL SIGNS: Relevant vital signs were reviewed. RELEVANT PSYCHIATRIC MEDICATIONS: Include Paxil 40 mg daily, Seroquel 12.5 at bedtime, Risperdal 1 mg twice a day. IMPRESSION: Schizophrenia, tardive dyskinesia, rule out delirium, rule out contribution of dementia with behavioral issues as this patient's history is clearly unknown. RECOMMENDATIONS: I will continue with cross-titration. Seroquel will be increased to 25 mg at bedtime tonight as the patient had the restless night last night. We will continue with Paxil and Risperdal at current doses. Psychiatry will continue to followup. Neema Fuchs MD [facility] # [id number]
--- NOTE | 2018-03-02 15:53 | PN ---
DATE: 03/02/2018 LOCATION: The patient was seen this Sunday morning in room 262, bed 1. SUBJECTIVE: Case was discussed with Dr. Galan consulting books salesperson regarding her elevated troponin which has now come down. We will do an echocardiogram to treat conservatively and follow and deal with her multiple commodities. The suture is a single staple in the right of her occipital scalp, seems to be healing nicely. The patient is awake and alert. Mental status is at baseline. Speech is sometimes difficult to understand because of the severity of her tardive dyskinesia. She has been in bed most of the night and this morning. We will try to get her up and out of bed today. Ask the physical therapist to assess with the hope of transfer to TCU for additional physical therapy and conditioning. PHYSICAL EXAMINATION: HEAD AND NECK: Unremarkable at baseline. LUNGS: Show markedly decreased breath sounds of severe COPD. HEART: Regular, but not tachycardic. EXTREMITIES: Thin and frail without edema. IMPRESSION: Fall with head trauma, laceration to the scalp, suture in place. PLAN: Continue to monitor, correct electrolytes and evaluation for TCU. Mateusz Robins MD
--- NOTE | 2018-03-02 18:18 | PN ---
DATE: 03/02/2018 The patient is in room 262, bed 1. REASON FOR CONSULTATION: Status post fall, elevated troponin. SUBJECTIVE: The patient is lying flat in bed without any chest pain, shortness of breath and palpitation. The patient is known case of tardive dyskinesia, schizophrenia, generalized weakness, COPD, osteoarthritis, weakness in lower extremities, walks with a cane, walks with a walker, history of depression and psychiatric disorder. Admitted with history of her legs got weak and she fell down and she has lacerated wound on the right side of the head. The patient denies any chest pain, shortness of breath and palpitation. PHYSICAL EXAMINATION: VITAL SIGNS: Blood pressure 122/83, respiration 19, pulse 69 and temperature 98.1. HEENT: Head is normocephalic. Eyes pupil normal. Conjunctiva normal. Nose and throat normal. NECK: JVP low. Carotid equal. The patient has laceration on the head. LUNGS: Clear. CARDIOVASCULAR: S1 and S2. Systolic murmur. No rub. ABDOMEN: Soft and nontender. No organomegaly. EXTREMITIES: No clubbing. No cyanosis. LABORATORY DATA: WBC 4.4, hemoglobin 11.7, hematocrit 35.4 and platelet 214. Sodium 137, potassium 3.8, BUN 15, creatinine 0.7, random glucose 135, earlier sugar was 108, troponin x4 is negative and TSH is normal. DIAGNOSES: Tardive dyskinesia, schizophrenia, chronic obstructive pulmonary disease, osteoarthritis, weakness of lower extremities, fell down and status post laceration on the scalp. Troponin 0.07, 0.05, 0.03 and 0.02, which fall in indeterminate range. The patient had no cardiac symptoms. PLAN: Echocardiogram has been already ordered. The patient is on Paxil 40 mg daily, Risperdal 1 mg b.i.d., ceftriaxone 1 g IV daily, Seroquel 25 mg at bedtime. We will continue present therapy. We will follow echo when it is done and we will give further recommendation, present clinically the patient cardiac status is stable. The patient is not a candidate for stress test with her movements and clinically, the patient does have an anginal symptoms, so we will continue . Leisa Galan MD [facility] # [id number]
--- NOTE | 2018-03-03 08:02 | CP.PCM.PN ---
Subjective - Date & Time of Evaluation Date of Evaluation: 03/03/18 Time of Evaluation: 06:10 - Subjective Subjective: Awake, no distress, confuse Reason for consultation and follow up:Cardiac evaluation of elevated troponin, status post fall, history of osteoarthritis, COPD, schizophrenia, and tardive dyskinesia Seen and examined by me and Dr. Galan Objective - Vital Signs/Intake and Output Vital Signs (last 24 hours): Temp Pulse Resp BP Pulse Ox 98 F 82 18 135/80 95 03/03/18 06:00 03/03/18 06:00 03/03/18 06:00 03/03/18 06:00 03/03/18 06:00 Intake and Output: 03/03/18 03/03/18 06:59 18:59 Intake Total 240 Output Total 3 Balance 237 - Medications Medications: Current Medications Ceftriaxone Sodium (Rocephin 1 Gram Ivpb) 1 gm in 100 mls @ 100 mls/hr IVPB DAILY [facility]; Protocol Last Admin: 03/02/18 10:10 Dose: 100 mls/hr Nicotine (Nicoderm Cq) 1 patch TD DAILY [facility] Last Admin: 03/02/18 10:10 Dose: 1 patch Paroxetine HCl (Paxil) 40 mg PO DAILY [facility] Last Admin: 03/02/18 10:11 Dose: 40 mg Quetiapine Fumarate (Seroquel) 25 mg PO HS [facility]; Protocol Last Admin: 03/02/18 22:47 Dose: 25 mg Risperidone (Risperdal Tab) 1 mg PO BID [facility]; Protocol Last Admin: 03/02/18 17:34 Dose: 1 mg - Labs Labs: 03/01/18 11:10 03/01/18 09:25 PT 11.5 SECONDS (9.4-12.5) 02/28/18 21:11 INR 1.01 02/28/18 21:11 APTT 28.3 Seconds (25.1-36.5) 02/28/18 21:11 - Constitutional Appears: Non-toxic, No Acute Distress - Head Exam Additional comments: right occipital staple - Eye Exam Eye Exam: Normal appearance Pupil Exam: NORMAL ACCOMODATION - ENT Exam ENT Exam: Mucous Membranes Dry - Neck Exam Neck Exam: Full ROM, Normal Inspection - Respiratory Exam Respiratory Exam: Decreased Breath Sounds, NORMAL BREATHING PATTERN - Cardiovascular Exam Cardiovascular Exam: +S1, +S2 - GI/Abdominal Exam GI & Abdominal Exam: Soft, Normal Bowel Sounds - Extremities Exam Extremities Exam: Full ROM, Normal Capillary Refill - Neurological Exam Neurological Exam: Alert, Awake Additional comments: confuse - Psychiatric Exam Psychiatric exam: Anxious - Skin Skin Exam: Dry, Normal Color, Warm Assessment and Plan - Assessment and Plan (Free Text) Assessment: A 67 year old female who cme in to the ER due to fall having a laceration on the right side of head. Repair of laceration was done in the ER. History includes osteoarthritis, COPD, schizophrenia, and tardive dyskinesia, weakness of lower extremities, walks with cane.Active smoker. Her leg gave up and fell in the bathroom hitting her head. CT of head negative for bleeding. Elevated troponin so cardiac consult was called. Troponin level- 0.08/0.07/0.05/0.03. trending down. Will treat medically. Denies chest pain or shortness of breath. Urinary tract infection, on antibiotics. Echo done awaiting results. Hard to understand speech. Plan: Echo done awaiting results No distress, no shortness of breath, confuse Heart rate and blood pressure stable Continue current treatment On IV antibiotics for UTI Smoking cessation On Nicotine patch Will discontinue telemetry Physical therapy Nutritional support Will follow up Plan and treatment discussed with Dr. Galan
[2018-03-03] MEDS: cefTRIAXone 1 gm 1 GM/100 ML BAG IVPB SCH (10:08)
--- NOTE | 2018-03-03 14:04 | HP ---
DATE OF EXAM: 03/03/2018 CHIEF COMPLAINT: Multiple falls at home, laceration to the scalp. HISTORY OF PRESENT ILLNESS: This is a 67-year-old woman I had known for many years with severe tardive dyskinesia from medications taken in the 1970s and 80s. She was at home who cares for and is cared for by her elderly mother in a two-family home shared with her sister and sister's . The patient's tardive dyskinesia has been worsening lately. She has been managed by the psychiatrist at [facility]. There has been some adjustments in the medicines and trials of the course for the last several months, but her tardive seems to be worsening. She has had several falls at home. She sustained a laceration to her scalp several months ago, but failed once again this late night and comes to the emergency room with worsening tardive symptoms and difficulty ambulating. PAST MEDICAL HISTORY: Significant for tardive dyskinesia, severe COPD, osteoarthritis, depression, PTSD, schizophrenia in the distant past. CURRENT MEDICATIONS: Include Risperdal and Paxil from the . SOCIAL HISTORY: She smokes less than 1 pack cigarettes per day, occasionally/rarely drinks a beer, and has 2-3 cups of coffee per day. ALLERGIES: SHE SAID SHE IS ALLERGIC TO FLU VACCINE AND CODEINE WHICH CAUSES LOSS OF CONSCIOUSNESS IN THE PAST. REVIEW OF SYSTEMS: Negative from all points, but it is difficult to obtain as it is uncertain that the patient quite understands the long list of above questions or symptoms. PHYSICAL EXAMINATION GENERAL: The patient was seen this Sunday morning in room 262, bed 1 with surgical marko in the scalp on the right occiput. She is awake, alert, clear with tardive movements of her upper body and tongue rolling. Her speech is difficult to understand because of tardive, but it is near baseline. HEENT: Conjunctivae are pink. Mucous membranes are moist. NECK: Supple without masses. Thyroid is not palpable. Neck is thin. No JVD noted. LUNGS: Have prolonged expiratory phase and markedly decreased breath sounds with severe COPD. HEART: Regular, not tachycardic. ABDOMEN: Thin and scaphoid. BREASTS: Atrophied without masses. EXTREMITIES: Thin, frail without edema. IMPRESSION: 1. Fall with laceration to the scalp. 2. Severe tardive dyskinesia. 3. Chronic obstructive pulmonary disease. 4. Tobacco use disorder. 5. Known history of mental illness. PLAN: We will admit to monitored bed. In view of the elevated troponin on admission, we will ask Cardiology to consult, we would most likely take a conservative approach in view of the patient's family wishes. We will also ask Psychiatry opinion from Dr. Fuchs and Dr. Gomez regarding her medications and tardive dyskinesia. After this acute care hospital stay, may consider transfer to Transitional Care Unit for up to 8 days of additional physical therapy and conditioning and then discharge to home. So Supervisory Cbp Officer to become involved in the case as well. If there is any family difficulty and discoid with the living arrangements, the patient's mother is currently at the rehab facility after recent hospitalization, and the patient's sister is living at home trying her best to make long-term plans for everyone. Mateusz Robins MD
--- NOTE | 2018-03-03 17:14 | PN ---
DATE: 03/03/2018 LOCATION: The patient is in room 262, bed 1. SUBJECTIVE: The patient with known COPD, schizophrenia, tardive dyskinesia, weakness in lower extremities, walks with a cane, active smoker, her legs gave up and she fell in the bathroom hitting her head and had laceration on the scalp. The patient denies any chest pain, palpitation or shortness of breath. Troponin was 0.08, 0.07, 0.05 and 0.03, which is nonsignificant. The patient already had echo. We will follow the echo report, in the meantime we will continue IV antibiotic for UTI and other medication and we will discontinue telemetry. Leisa Galan MD
--- NOTE | 2018-03-03 19:03 | CARD ---
APPROVED REPORT Date of service: 03/02/2018 EXAM: Two-dimensional and M-mode echocardiogram with Doppler and color Doppler. INDICATION LV Function: 2D DIMENSIONS Left Atrium (2D)3.0 (1.6-4.0cm)IVSd1.2 (0.7-1.1cm) Aortic Root (2D)3.1 (2.0-3.7cm)LVDd3.4 (3.9-5.9cm) LVOT Diameter1.9 (1.8-2.4cm)PWd1.3 (0.7-1.1cm) LVDs2.3 (2.5-4.0cm)FS (%) 32.9 % LVEF (%)62.7 (>50%) M-Mode DIMENSIONS Aortic Cusp Exc.0.80 (1.5-2.0cm) Aortic Valve AoV Peak Gefzjcgr124.0cm/sAoV VTI41.0cmAO Peak GR.13mmHg LVOT Peak Gcimjtjp37.4cm/sLVOT VTI13.10cmAO Mean GR.7mmHg DINA (VMAX)1.89aq6JEJ (VTI)0.91cm2 Mitral Valve MV E Ggiynskx20.3cm/sMV A Agpxoyjz67.0cm/sE/A ratio0.7 TDI Lateral E' Peak V6.63cm/sMedial E' Peak V3.80cm/sE/Lateral E'8.3 E/Medial E'14.6 Pulmonary Valve PV Peak Mehnyofm36.4cm/sPV Peak Grad.2mmHg Tricuspid Valve TR Peak Gdlrqbei192hq/sRAP TMTHVIJV8xwMgCM Peak Gr.17mmHg [id number] LEFT VENTRICLE The left ventricle is normal size. Mild LV Hypertrophy. Normal LV Ej.Fr: 63%. Mild LV Diastolic Dysfunction. RIGHT VENTRICLE The right ventricle is normal size. The right ventricular systolic function is normal. ATRIA The left atrium size is normal. The right atrium size is normal. AORTIC VALVE Aortic Valve Leaflets Thickened due to Calcification. Moderate Aortic Stenosis. MITRAL VALVE Mitral Leaflets Thickened. Valve Opening Normal. Mitral regurgitation is trace. TRICUSPID VALVE The tricuspid valve is normal in structure. There is trace tricuspid regurgitation. PERICARDIAL EFFUSION Small Anterior and Posterior Pericardial Effusion Present. No Tamponade. <Conclusion> The left ventricle is normal size. Mild LV Hypertrophy. Normal LV Ej.Fr: 63%. Mild LV Diastolic Dysfunction. The right ventricle is normal size. The right ventricular systolic function is normal. The left atrium size is normal. The right atrium size is normal. Aortic Valve Leaflets Thickened due to Calcification. Moderate Aortic Stenosis. Mitral Leaflets Thickened. Valve Opening Normal. Mitral regurgitation is trace. The tricuspid valve is normal in structure. There is trace tricuspid regurgitation. Small Anterior and Posterior Pericardial Effusion Present. No Tamponade.
--- NOTE | 2018-03-03 19:57 | PN ---
DATE: 03/03/2018 SUBJECTIVE: The patient was seen this Sunday morning in room 362, bed 1. She is resting comfortably in bed in no acute distress. Mental status is at baseline. Speech is difficult to understand because of the severity of the tardive dyskinesia. Troponins have come down since the equivocal troponins on admission and followup. The patient reports some mild residual headache from her fall, is aware that the staple is placed on the right parietooccipital area. PHYSICAL EXAMINATION: Remains unchanged as above. IMPRESSION: 1. Fall at home with scalp laceration. 2. Elevated/indeterminate troponins on admission and otherwise asymptomatic patient. 3. Severe tardive dyskinesia. 4. History of mental health diagnoses. 5. Chronic obstructive pulmonary disease. 6. Tobacco use disorder. PLAN: Continue physical therapy. Continue TCU evaluation and transfer for tomorrow. Case discussed with Cardiology. We will take a conservative approach. Echocardiogram ordered. The patient will be ready for transitional care as early as tomorrow, Sunday. We will discuss with case management. Mateusz Robins MD
--- NOTE | 2018-03-04 06:44 | CP.PCM.PN ---
Subjective - Date & Time of Evaluation Date of Evaluation: 03/04/18 Time of Evaluation: 06:15 - Subjective Subjective: Sleeping but easily awaken, no distress, Reason for consultation and follow up:Cardiac evaluation of elevated troponin, Non STEMI, status post fall, history of osteoarthritis, COPD, schizophrenia, and tardive dyskinesia Seen and examined by me and Dr. Zhang Objective - Vital Signs/Intake and Output Vital Signs (last 24 hours): Temp Pulse Resp BP Pulse Ox 98.8 F 75 20 90/55 L 96 03/03/18 23:06 03/03/18 23:06 03/03/18 23:06 03/03/18 23:06 03/03/18 23:06 - Medications Medications: Current Medications Ceftriaxone Sodium (Rocephin 1 Gram Ivpb) 1 gm in 100 mls @ 100 mls/hr IVPB DAILY RUDY; Protocol Last Admin: 03/03/18 10:08 Dose: 100 mls/hr Nicotine (Nicoderm Cq) 1 patch TD DAILY RUDY Last Admin: 03/03/18 10:08 Dose: 1 patch Paroxetine HCl (Paxil) 40 mg PO DAILY RUDY Last Admin: 03/03/18 10:09 Dose: 40 mg Quetiapine Fumarate (Seroquel) 25 mg PO HS RUDY; Protocol Last Admin: 03/03/18 21:24 Dose: 25 mg Risperidone (Risperdal Tab) 1 mg PO BID RUDY; Protocol Last Admin: 03/03/18 17:42 Dose: 1 mg - Labs Labs: 03/01/18 11:10 03/01/18 09:25 PT 11.5 SECONDS (9.4-12.5) 02/28/18 21:11 INR 1.01 02/28/18 21:11 APTT 28.3 Seconds (25.1-36.5) 02/28/18 21:11 - Constitutional Appears: Non-toxic, No Acute Distress - Head Exam Head Exam: NORMAL INSPECTION, NORMOCEPHALIC - Eye Exam Eye Exam: Normal appearance Pupil Exam: NORMAL ACCOMODATION - ENT Exam ENT Exam: Mucous Membranes Dry - Respiratory Exam Respiratory Exam: Decreased Breath Sounds, Clear to Ausculation Bilateral, NORMAL BREATHING PATTERN - Cardiovascular Exam Cardiovascular Exam: +S1, +S2 - GI/Abdominal Exam GI & Abdominal Exam: Soft, Normal Bowel Sounds - Extremities Exam Extremities Exam: Full ROM - Neurological Exam Neurological Exam: Alert, Awake - Psychiatric Exam Psychiatric exam: Normal Affect, Normal Mood - Skin Skin Exam: Dry, Normal Color, Warm Assessment and Plan - Assessment and Plan (Free Text) Assessment: A 67 year old female who cme in to the ER due to fall having a laceration on the right side of head. Repair of laceration was done in the ER. History includes osteoarthritis, COPD, schizophrenia, and tardive dyskinesia, weakness of lower extremities, walks with cane.Active smoker. Her leg gave up and fell in the bathroom hitting her head. CT of head negative for bleeding. Elevated troponin so cardiac consult was called. Troponin level- 0.08/0.07/0.05/0.03. trending down. Will treat medically. Denies chest pain or shortness of breath. Urinary tract infection, on antibiotics. Hard to understand speech.Echo done -LVEF 63 %, moderate aortic stenosis, trace Mr/TR, small anterior and posterior pericardial effusion, no tamponade.Discharge planning. Plan: No distress, no shortness of breath Cardiac status stable Heart rate and blood pressure stable Continue current treatment On IV antibiotics for UTI Smoking cessation On Nicotine patch May discharge from cardiac standpoint Physical therapy Possible transfer to TCU Nutritional support Will follow up Plan and treatment discussed with Dr. Zhang
[2018-03-04 09:00] VITALS: RESP 18
--- NOTE | 2018-03-04 09:30 | CON ---
DATE: 03/04/2018 HISTORY OF PRESENT ILLNESS: The patient is 67-year-old female who is being followed by Psychiatry as we cross titrate Risperdal due to patient's tardive dyskinesia which is contributing to patient's increase frequency of falls. The patient has overnights; however, and has not shown any acute changes in her behavior since the beginning of this titration though she still has trouble expressing herself during my visits. The patient believes she is unclean, she believes it is September. The patient indicates that she did sleep well which is confirmed by with nursing notes. She denies being depressed. She does not appear to have a lot of awareness of her current situation and the patient also denies having any hallucinations and delusions were not elicited; however, fluency is impaired. The patient also randomly tells me that she has found a Bible. Her thought process is confused and disorganized. Her insight and judgment are considered to be poor. Vital signs and meds are reviewed. Psychiatric medications include Risperdal 1 b.i.d. and Seroquel 25 at bedtime. IMPRESSION: History of schizophrenia, tardive dyskinesia, rule out configuration of delirium and/or dementia. PLAN: We will continue with cross titration from Risperdal to Seroquel, Risperdal will be reduced to 1 mg in the afternoon and Seroquel will be increased to 12.5 a.m. and continue 25 mg at bedtime. Psychiatric will continue to follow up and monitor patient's tolerance until cross titration and inspect. ability is optimized. Neema Fuchs MD
[2018-03-04] MEDS ORDERED: Cefpodoxime (Vantin) 200 mg Tab PO SCH (10:00)
--- NOTE | 2018-03-04 12:14 | CP.PCM.PCO ---
Physician Communication Note - Physician Communication Note Physician Communication Note: Per Dr. Myles Robins, pt cleared for dc to either tcu or [facility]
[2018-03-04 14:11] VITALS: BP 90/56; PULSE 81; TEMP 98.5; O2SAT 97
--- NOTE | 2018-03-04 19:16 | PN ---
DATE: 03/04/2018 REASON FOR CONSULTATION: Cardiac evaluation, elevated troponin, non-STEMI, history of falls, COPD, schizophrenia, tardive dyskinesia. This note is in addition to dictated by the nurse practitioner, Kelsea Byrne. SUBJECTIVE: The patient denies any chest pain, shortness of breath, or any palpitation, lying flat in the bed. Recently, the patient had an echocardiography done that shows ejection fraction of 53%, moderate aortic stenosis, trace TR, trace MR, a small anterior pericardial effusion, no tamponade. RECOMMENDATION: We will start low dose of NSAID. CT of head negative for bleeding. We will put ibuprofen for difficult chest pain and for possible pericarditis. We will follow with you for possible pericarditis. Interim, continue rest of her medication. The patient has history of tardive dyskinesia. Leisa Zhang MD
== END 2018-03-04 22:28 | DRG 92 ==
LOC: ED 19:56 → ERH 03-01 01:30 → 2RNO 03-01 02:53 → OBSVTOIN 03-01 10:46 → 5RNO 03-03 18:05
PROVIDERS: ADMIT Internal Medicine; ATTEND Internal Medicine
PROC: 3E0234Z Introduction of Serum, Toxoid and Vaccine into Muscle, Percutaneous Approach (ICD-10-PCS; principal; 2018-02-28)
DX: G24.01 Drug induced subacute dyskinesia (principal); R64 Cachexia; N39.0 Urinary tract infection, site not specified; Z68.1 Body mass index [BMI] 19.9 or less, adult; S01.01XA Laceration without foreign body of scalp, initial encounter; J44.9 Chronic obstructive pulmonary disease, unspecified; F20.9 Schizophrenia, unspecified; R47.81 Slurred speech; F17.210 Nicotine dependence, cigarettes, uncomplicated; W19.XXXA Unspecified fall, initial encounter; F43.10 Post-traumatic stress disorder, unspecified; I08.3 Combined rheumatic disorders of mitral, aortic and tricuspid valves; M19.90 Unspecified osteoarthritis, unspecified site; M81.0 Age-related osteoporosis without current pathological fracture; R29.6 Repeated falls; Y92.002 Bathroom of unspecified non-institutional (private) residence as the place of occurrence of the external cause; Z88.5 Allergy status to narcotic agent; Z88.7 Allergy status to serum and vaccine; Z23 Encounter for immunization

== ENCOUNTER 2018-06-03 20:15 | Inpatient (IN) | payer MEDICARE, MEDICAID ==
[2018-06-03 20:22] VITALS: BMI 13.7
[2018-06-03] MEDS ORDERED: Sodium Chloride 0.9% 1,000 ML IV STA (20:56)
[2018-06-03 21:06] LABS: BASO # 0.02 K/mm3 (0.0-2.0); BASO % 0.2 % (0.0-3.0); EOS # 0.1 (0.0-0.7); EOS % 0.8 % (1.5-5.0); HEMOGLOBIN 11.6 g/dL (12.0-16.0); LYMPH # 1.9 (1.2-3.4); LYMPH % 20.9 % (22.0-35.0); MEAN CELL VOLUME 85.7 fl (80.0-105.0); MEAN CORPUSCULAR HEMOGLOBIN 28.6 pg (25.0-35.0); MEAN CORPUSCULAR HGB CONC 33.4 g/dl (31.0-37.0); MEAN PLATELET VOLUME 8.5 fl (7.0-11.0); MONO # 1.2 (0.1-0.6); RBC 4.05 10^6/uL (3.5-6.1); RED CELL DISTRIBUTION WIDTH 14.1 % (11.5-14.5); WHITE BLOOD COUNT 8.9 10^3/uL (4.5-11.0)
--- NOTE | 2018-06-03 21:13 | ED PDOC ---
Arrival/HPI - General Chief Complaint: Trauma Historian: Patient - History of Present Illness Narrative History of Present Illness (Text): 06/03/18 21:09 67 year old female, whose past medical history includes Osteoarthritis, COPD, schizophrenia, and tardive dyskinesia, presents s/p multiple falls. According to Dr Robins, patient was recently discharged from subacute rehab center after her mother stopped paying for her care. Patient has been living home with her mother and sister since her discharge. Patient informs her mother was recently admitted to the hospital. Patient informs she is unable to do anything for herself at home. Patient denies any fevers, chills, headache, dizziness, chest pain, shortness of breath, dyspnea on exertion, cough, diaphoresis, abdominal pain, nausea, vomiting, diarrhea, back pain, neck pain, or any other complaint. PMD: Dr. Robins Time/Duration: Prior to Arrival, 1 week Symptom Onset: Sudden Symptom Course: Unchanged Activities at Onset: Light Context: Home Past Medical History - Provider Review Nursing Documentation Reviewed: Yes - Infectious Disease Hx of Infectious Diseases: None - Tetanus Immunization Tetanus Immunization: Unknown - Cardiac Hx Cardiac Disorders: No - Pulmonary Hx Chronic Obstructive Pulmonary Disease (COPD): Yes Other/Comment: Heavy smoker - Neurological Other/Comment: Ataxia - HEENT Hx HEENT Disorder: No - Renal Hx Renal Disorder: No - Endocrine/Metabolic Hx Endocrine Disorders: No - Hematological/Oncological Hx Blood Disorders: No - Integumentary Hx Dermatological Disorder: No - Musculoskeletal/Rheumatological Hx Arthritis: Yes (osteoarthritis) - Gastrointestinal Hx Gastrointestinal Disorders: No - Genitourinary/Gynecological Hx Genitourinary Disorders: No - Psychiatric Hx Psychophysiologic Disorder: Yes (smoker) Hx Anxiety: Yes Hx Depression: Yes Hx Schizophrenia: Yes Hx Substance Use: No - Past Surgical History Past Surgical History: No Previous - Surgical History Hx Amputation: No Hx Appendectomy: No Hx Cholecystectomy: No Hx Gastric Bypass Surgery: No Hx Joint Replacement: No Hx Kidney Transplant: No Hx Liver Transplant: No Hx Mastectomy: No Hx Musculoskeletal Surgery: No Hx Open Heart Surgery: No Hx Orthopedic Surgery: No Hx Splenectomy: No - Anesthesia Hx Anesthesia Reactions: No Hx Malignant Hyperthermia: No - Suicidal Assessment Feels Threatened In Home Enviroment: No Family/Social History - Physician Review Nursing Documentation Reviewed: Yes Family/Social History: No Known Family HX Smoking Status: Current Some Days Smoker Hx Alcohol Use: Yes (BEER ON OCCASION) Hx Substance Use: No Hx Substance Use Treatment: No Allergies/Home Meds Allergies/Adverse Reactions: Allergies codeine Allergy (Verified 02/28/18 20:30) RASH flu shot Allergy (Uncoded 02/28/18 20:30) RASH Home Medications: Home Meds Medication Instructions Recorded Confirmed Paroxetine HCl [Paxil] 40 mg PO DAILY 12/09/15 08/18/17 Risperidone [Risperdal] 3 mg PO HS 12/09/15 08/18/17 Review of Systems - Physician Review All systems were reviewed & negative as marked: Yes - Review of Systems Constitutional: absent: Fevers, Night Sweats Respiratory: absent: SOB, Cough Cardiovascular: absent: Chest Pain, RODRIGUEZ Gastrointestinal: absent: Abdominal Pain, Diarrhea, Nausea, Vomiting Musculoskeletal: absent: Back Pain, Neck Pain Neurological: absent: Headache, Dizziness Endocrine: absent: Diaphoresis Physical Exam - Systems Exam Head: Present: Atraumatic, Normocephalic. No: Ecchymosis, Laceration Pupils: Present: PERRL Extroacular Muscles: Present: EOMI Conjunctiva: Present: Normal Mouth: Present: Dry, Other (Slight slurred speech, that is baseline). No: Moist Mucous Membranes, Normal Tounge (macroglossia) Neck: Present: Normal Range of Motion Respiratory/Chest: Present: Clear to Auscultation, Good Air Exchange. No: Respiratory Distress, Accessory Muscle Use Cardiovascular: Present: Regular Rate and Rhythm, Normal S1, S2. No: Murmurs Abdomen: No: Tenderness, Distention, Peritoneal Signs Back: Present: Normal Inspection. No: Midline Tenderness Upper Extremity: Present: Normal Inspection. No: Cyanosis, Edema Lower Extremity: Present: Normal Inspection. No: Edema Neurological: Present: GCS=15, CN II-XII Intact, Speech Normal Skin: Present: Warm, Dry, Normal Color. No: Rashes, Laceration Psychiatric: Present: Alert, Oriented x 3, Normal Insight, Normal Concentration Medical Decision Making ED Course and Treatment: 06/03/18 21:16 Impression: 67 year old female presents s/p multiple falls. Plan: -- CT Cspine -- CT Head -- Labs --D5 gtt -- Chest X-ray -- Urinalysis -- Reassess and disposition Prior Visits: Notes and results from previous visits were reviewed. Progress Notes: 06/03/18 22:23 Labs reveals hyponatremia. Urinalysis pending. CTH reveals no evidence of intracranial hemorrhage. Discussed clinical presentation with Dr. Pearson(PCP) who accepts patient onto his service. - Lab Interpretations Lab Results: 06/03/18 20:55 06/03/18 20:55 Lab Results 06/03/18 22:22: Urine Color Light yellow, Urine Appearance Clear, Urine pH 6.5, Ur Specific [place] <= 1.005, Urine Protein Negative, Urine Glucose (UA) Negative, Urine Ketones Negative, Urine Blood Trace-lysed H, Urine Nitrate Negative, Urine Bilirubin Negative, Urine Urobilinogen 0.2, Ur Leukocyte Esterase Trace H, Urine RBC Pending, Urine WBC Pending 06/03/18 21:00: POC Glucose (mg/dL) 87 06/03/18 20:55: Sodium 131 L, Potassium 3.8, Chloride 94 L, Carbon Dioxide 26, Anion Gap 14, BUN 13, Creatinine 0.5 L, Est GFR ( Amer) > 60, Est GFR (Non-Af Amer) > 60, Random Glucose 73, Calcium 8.9, Phosphorus 3.5, Magnesium 1.6 L, Total Bilirubin 0.7, AST 32, ALT 12, Alkaline Phosphatase 89, Total Creatine Kinase 284 H, CK-MB (CK-2) 5.2 H, CK-MB (CK-2) % 1.8 L, Troponin I < 0.01 D, Total Protein 7.1, Albumin 4.2, Globulin 2.9, Albumin/Globulin Ratio 1.5 06/03/18 20:55: WBC 8.9 D, RBC 4.05, Hgb 11.6 L, Hct 34.7 L, MCV 85.7, MCH 28.6, MCHC 33.4, RDW 14.1, Plt Count 238, MPV 8.5, Neut % (Auto) 65.1, Lymph % (Auto) 20.9 L, [place] % (Auto) 13.0 H, Eos % (Auto) 0.8 L, Baso % (Auto) 0.2, Lymph # (Auto) 1.9, [place] # (Auto) 1.2 H, Eos # (Auto) 0.1, Baso # (Auto) 0.02, A bsolute Neuts (auto) 5.78 I have reviewed the lab results: Yes - RAD Interpretation Radiology Orders: 06/03/18 20:56 CHEST PORTABLE [RAD] Stat 06/03/18 20:57 CERVICAL SPINE W/O CONTRAST [CT] Stat HEAD W/O CONTRAST [CT] Stat - Medication Orders Current Medication Orders: Sodium Chloride (Sodium Chloride 0.9%) 1,000 mls @ 999 mls/hr IV .Q1H1M STA Stop: 06/03/18 21:56 - Scribe Statement The provider has reviewed the documentation as recorded by the Scribe Miguel Pulido Provider Scribe Attestation: All medical record entries made by the Scribe were at my direction and personally dictated by me. I have reviewed the chart and agree that the record accurately reflects my personal performance of the history, physical exam, medical decision making, and the department course for this patient. I have also personally directed, reviewed, and agree with the discharge instructions and disposition. Disposition/Present on Arrival - Present on Arrival Any Indicators Present on Arrival: No History of DVT/PE: No History of Uncontrolled Diabetes: No Urinary Catheter: No History of Decub. Ulcer: No History Surgical Site Infection Following: None - Disposition Have Diagnosis and Disposition been Completed?: Yes Diagnosis: Failure to thrive, Dehydration, Multiple falls Disposition: HOME/ ROUTINE Disposition Time: 22:34 Patient Plan: Admission Condition: IMPROVED Discharge Instructions (ExitCare): Dehydration, Adult (DC) Print Language: SLOVAK Additional Instructions: All medical record entries made by the Scribe were at my direction and personally dictated by me. I have reviewed the chart and agree that the record accurately reflects my personal performance of the history, physical exam, medical decision making, and the department course for this patient. I have also personally directed, reviewed, and agree with the discharge instructions and disposition. Forms: [employer] (Portuguese)
[2018-06-03 21:19] LABS: ALB/GLOB RATIO 1.5 (1.1-1.8); ALBUMIN 4.2 g/dL (3.0-4.8); ALT/SGPT 12 U/L (7-56); AST/SGOT 32 U/L (14-36); BLOOD UREA NITROGEN 13 mg/dL (7-21); CALCIUM 8.9 mg/dL (8.4-10.5); GFR NON-AFRICAN AMERICAN > 60
[2018-06-03 21:30] LABS: TROPONIN I < 0.01 ng/mL
[2018-06-03 21:55] LABS: CK MB% 1.8 % (2.5-3.0); CK-MB 5.2 ng/mL (0.0-3.6)
[2018-06-03 22:30] LABS: PH,URINE 6.5 (4.7-8.0); URINE APPEARANCE CLEAR (CLEAR); URINE BILIRUBIN NEGATIVE (NEGATIVE); URINE BLOOD TRACE-LYSED (NEGATIVE); URINE COLOR LIGHT YELLOW (YELLOW); URINE GLUCOSE (UA) NEGATIVE (NEGATIVE); URINE LEUKOCYTE ESTERASE TRACE Leu/uL (NEGATIVE); URINE PROTEIN NEGATIVE mg/dL (<30 mg/dL); URINE UROBILINOGEN 0.2 E.U./dL (<1 E.U./dL)
[2018-06-03 22:37] LABS: URINE RBC 0 - 2 /hpf (0-2); URINE WBC 0 - 2 /hpf (0-6)
--- NOTE | 2018-06-04 08:14 | CT ---
Date of service: 06/03/2018 PROCEDURE: CT HEAD WITHOUT CONTRAST. HISTORY: fall COMPARISON: 02/28/2018 TECHNIQUE: Axial computed tomography images were obtained through the head/brain without intravenous contrast. Radiation dose: Total exam DLP = 887.88 mGy-cm. This CT exam was performed using one or more of the following dose reduction techniques: Automated exposure control, adjustment of the mA and/or kV according to patient size, and/or use of iterative reconstruction technique. FINDINGS: HEMORRHAGE: No intracranial hemorrhage. BRAIN: No mass effect or edema. Mild chronic microvascular changes. There is some motion artifact on the study. There is some questionable cerebral edema with loss of the barbosa-white differentiation. This is probably artifactual. Clinical correlation is suggested. MRI may be indicated VENTRICLES: Unremarkable. No hydrocephalus. CALVARIUM: Unremarkable. PARANASAL SINUSES: Unremarkable as visualized. No significant inflammatory changes. MASTOID AIR CELLS: Unremarkable as visualized. No inflammatory changes. OTHER FINDINGS: The report concurs with the preliminary [facility] report IMPRESSION: Mild chronic microvascular changes. There is some motion artifact on the study. There is some questionable cerebral edema with loss of the barbosa-white differentiation. This is probably artifactual. Clinical correlation is suggested. MRI may be indicated
--- NOTE | 2018-06-04 08:18 | CT ---
Date of service: 06/03/2018 PROCEDURE: CT Cervical Spine without contrast HISTORY: fall COMPARISON: None available. TECHNIQUE: Axial computed tomography images were obtained of the cervical spine without the use of intravenous contrast. Coronal and sagittal reformatted images were created and reviewed. Radiation dose: Total exam DLP = 275.17 mGy-cm. This CT exam was performed using one or more of the following dose reduction techniques: Automated exposure control, adjustment of the mA and/or kV according to patient size, and/or use of iterative reconstruction technique. FINDINGS: VERTEBRAE: No fracture. Normal alignment. No destructive bony lesion. DISCS/SPINAL CANAL/NEURAL FORAMINA: There is extensive facet arthropathy and disc degeneration throughout the cervical spine with foraminal stenosis. Mild central stenosis. PARASPINAL SOFT TISSUES: Unremarkable. OTHER FINDINGS: The report concurs with the preliminary [facility] report IMPRESSION: No acute fracture. Severe chronic degenerative changes.
--- NOTE | 2018-06-04 08:56 | RAD ---
Date of service: 06/03/2018 PROCEDURE: CHEST RADIOGRAPH, 1 VIEW HISTORY: falls COMPARISON: None available. FINDINGS: LUNGS: The lungs are well inflated and clear. PLEURA: No pneumothorax or pleural effusion. CARDIOVASCULAR: There is mild cardiomegaly. There are aortic atherosclerotic calcifications present. OSSEOUS STRUCTURES: Within normal limits for the patient's age. Severe degenerative osteoarthrosis in the right acromioclavicular joint. VISUALIZED UPPER ABDOMEN: Normal. OTHER FINDINGS: None. IMPRESSION: No acute findings.
--- NOTE | 2018-06-04 20:50 | CARD ---
APPROVED REPORT Date of service: 06/03/2018 EKG Measurement Heart [id number] <Conclusion> Normal sinus rhythm NDSTT abnormalities Abnormall ECG
--- NOTE | 2018-06-05 02:34 | HP ---
DATE OF EXAM: 06/04/2018 CHIEF COMPLAINT: Multiple falls. HISTORY OF PRESENT ILLNESS: This is a 67-year-old woman, I have known for many years with severe tardive dyskinesia from medications taken in the 1970s and 80s. She lived at home for many years with her mother each caring for the other in a two family home, also shared by her sister and sister's . The patient's tardive dyskinesia has been getting worse lately. She was hospitalized in 02/2018 with multiple falls and a laceration to the scalp. After that, acute care facility hospitalization both the patient and her mother went to [facility]. When their timekeeper benefits ran out, they left rehab for home. Unfortunately, the patient and her elderly mother care for each other and help offered from her sister is limited because the patient's sister has fibromyalgia symptoms. The patient had fallen several times both at home and outside and came to the emergency room via ambulance after a fall on the sidewalk. PAST MEDICAL HISTORY: Significant for tardive dyskinesia, severe COPD, osteoarthritis, depression, posttraumatic stress disorder, and schizophrenia in the distant past. MEDICATIONS: Her medications until recently included Risperdal and Paxil from the [facility] as well as medicines that has been adjusted by Dr. Abraham during the patient's recent hospital stay. I am uncertain as to her recent discharge meds from subacute rehab as she had not followed up with me as of yet. SOCIAL HISTORY: She quit smoking 3 months ago during this most recent hospital stay. Has history of tobacco all of her life as well as 2 to 3 cups of coffee a day. ALLERGIES: THE PATIENT SAYS SHE IS ALLERGIC TO FLU VACCINE AND TO CODEINE, WHICH CAUSED A LOSS OF CONSCIOUSNESS IN THE PAST. REVIEW OF SYSTEMS: Negative for multiple points, but difficult to obtain because of the patient's long list of symptoms and questions. PHYSICAL EXAMINATION: GENERAL: The patient is seen this Sunday afternoon resting comfortable in bed in room 574, bed 2 with little activity or interaction with me even during the visit. She recognizes me, tries to answer appropriately, but her speech is severely garbled because of the tardive dyskinesia. HEENT: Shows some temporalis muscle wasting. Eyes are sunken. Mucous membranes are moist. NECK: Thin. CHEST: Clear with decreased breath sounds and prolonged expiratory phase. HEART: Regular, not tachycardic at this time. ABDOMEN: Thin, scaphoid. EXTREMITIES: Show no edema. IMPRESSION: 1. Tardive dyskinesia. 2. Multiple falls at home. 3. Chronic obstructive pulmonary disease. 4. History of tobacco use. 5. Known history of mental illness, depression, and schizophrenia. Mateusz Rboins MD MTDD
--- NOTE | 2018-06-05 12:51 | PN ---
DATE: 06/03/2018 DAILY PROGRESS NOTE HOSPITAL COURSE: The patient is a 67-year-old woman who was stricken with severe tardive dyskinesia for the past 30-40 years. She is cared for by her mother and her family at home. She had multiple falls at home last of which she lacerated the scalp, had been hospitalized and eventually went for 30 days of subacute rehab at [facility]. She was recently discharged to home but again continued to fall several times. She was, therefore, readmitted to [facility] on 06/03. Her EKG shows regular sinus rhythm with nonspecific ST-T wave changes. Chest x-ray showed no acute disease. CAT scan of the head showed small vessel disease. CAT scan of the spine shows chronic degenerative changes of the cervical spine. The patient is known to have a history of tardive dyskinesia, chronic obstructive pulmonary disease, osteoarthritis, depression and schizophrenia. When seen today, she is resting comfortably, offers no complaints. Her vital signs are stable. Physical therapy consultation has been requested. We have also requested consultation from Dr. Hampton, the neurologist, Dr. Gomez, the psychiatrist for this patient. We also called Dr. Segovia to consult for a possible urinary tract infection. Her urine is growing Staph aureus specie as well as the gram-negative rods. We will continue to follow the patient closely. I spoke to the case briefer about the case, they are considering long-term placement for this patient because of her disabilities versus eventual discharge to home with outpatient physical therapy post discharge. This will be determined after discussion with the patient and her family. Betito Robins MD
--- NOTE | 2018-06-05 20:26 | CON ---
DATE OF CONSULTATION: 06/05/2018 HISTORY OF PRESENT ILLNESS: In short, the patient is a 67-year-old female with history of schizophrenia. The patient has severe tardive dyskinesia for the past 20-30 years. The patient has frequent falls with severe consequences, such as laceration of her skull. The patient was in subacute rehab and was discharged home. The patient again, status post fall, was admitted on the medical site for a few medical issues, such as urinary tract infection, which is possible and Infectious Disease involved and also evaluation of falls. Psych consult was called for evaluation of medications. The patient is very familiar with this patient from the previous consultation services, which took place here in [place]. The patient was seen and examined. The patient presented with lip smacking, involuntary upper extremities and lower extremities movements. The patient has dysarthria, and it was very hard to understand what the patient is trying to say. The patient presented to be mildly paranoid about her family, was feeling that it was mistake from her side to point her family to be a power of state's attorney, based on report, most likely, her mother is power of state's attorney. The patient reports that she is taking her medications, and the patient denied any side effects. The patient reported that she sleeps well. The patient presented mildly paranoid towards her mother. The patient reports that she feels comfortable right now. Reported that she slept well. The patient denied any thoughts of harming herself or others, denied hearing voices, denied seeing things. Based on collateral information from nursing staff, the patient does not exhibit any aggressive or agitated behavior. PHYSICAL EXAMINATION: VITAL SIGNS: Reviewed. Temperature 97.1, pulse is 81, blood pressure 129/91, respirations 18, and oxygen saturation is 96. MEDICATIONS: Reviewed. The patient is on Tylenol, aspirin, Cogentin, Paxil, and Seroquel, which is 25 mg at the nighttime. LABORATORY DATA: Labs reviewed. Chemistry reviewed. Sodium was 131. Urinalysis showed leukocyte esterase trace, and on microbiology, staph aureus and gram-negative rods, rule out urinary tract infection. MENTAL STATUS EXAMINATION: The patient knows that she is in the hospital. She knows what were the circumstances of her admission to the medical side. Intermittent eye contact. Mood described as okay. Affect was expanded in a way that the patient is making grimaces, also has like lip smacking. Thought process seems to be circumstantial. Thought content, the patient presented mildly paranoid. Insight and judgment seemed to be fair. Impulses are well controlled. IMPRESSION: As per history, schizophrenia and tardive dyskinesia. At present moment, the patient is on the medical site, status post fall. Also, the patient has possible urinary tract infection. PLAN: Continue current management. Continue current medications. We will speak to the primary team. Also, primary team is raising concern about the patient's safety at home and questionable placement, but this is up to family and the patient. Meanwhile, we will continue seeing the patient and advise accordingly. In case, if the patient would have difficulty to fall asleep or to stay asleep, Xanax might be helpful at the nighttime only as needed for insomnia and the muscle relaxation. We will follow up and advise accordingly. Thank you very much for letting me participate in the care of your patient. Leigh Gomez MD
--- NOTE | 2018-06-05 22:58 | CON ---
DATE: 06/05/2018 HISTORY OF PRESENT ILLNESS: This is a 67-year-old female with past medical history of tardive dyskinesia, COPD, osteoarthritis, depression, posttraumatic stress disorder, schizophrenia, hospitalized in 02/2018 with multiple falls and the patient was at [facility] and the patient has a mother who is in the hospital. PAST MEDICAL HISTORY: Tardive dyskinesia, COPD, arthritis, depression, and schizophrenia. SOCIAL HISTORY: Quit smoking 3 months ago. ALLERGIES: ALLERGIC TO FLU VACCINE AND CODEINE. REVIEW OF SYSTEMS: A 10-point review of systems was negative. PHYSICAL EXAMINATION: HEENT: Normocephalic and atraumatic. NECK: Supple. NEUROLOGIC: Awake and oriented to self. Cranial nerves II through XII was tested. Pupil reactive. Spontaneous movement of all the extremities noted. Deep tendon reflexes 1+. Cerebellar gait deferred. IMPRESSION AND PLAN: Multiple falls, tardive dyskinesia and past medical history of depression and schizophrenia. Continue present management, physical therapy, and we will followup. Erick Hampton MD
--- NOTE | 2018-06-06 10:40 | CP.PCM.PCO ---
Physician Communication Note - Physician Communication Note Physician Communication Note: falls/deconditioned. Will need PT/CRISTEL
--- NOTE | 2018-06-06 12:48 | CP.PCM.PCO ---
Additional Comments - Additional Comments Additional Comments: Pt seen and examined at bedside. In no acute distress. On Cefepime IV per ID recs for UTI. Neuro recs noted. Physical therapy recommendation noted. Will continue to follow.
[2018-06-06] MEDS: Cefepime 1gm in NS 100ml 1 GM/100 ML BAG IVPB SCH ×2 (14:47→21:53)
--- NOTE | 2018-06-06 15:08 | RAD ---
Date of service: 06/06/2018 PROCEDURE: Radiographs of the left elbow. HISTORY: Swelling COMPARISON: No prior. TECHNIQUE: 3 views obtained. FINDINGS: BONES: Normal. No fracture. JOINTS: Normal. No osteoarthritis. SOFT TISSUES: Normal. JOINT EFFUSION: None. OTHER FINDINGS: None IMPRESSION: Unremarkable radiographs of the left elbow.
--- NOTE | 2018-06-06 21:49 | PN ---
DATE: 06/06/2018 SUBJECTIVE: The patient was seen today. The patient presented the same way, mildly paranoid towards her family, especially with sister. The patient complained that she did not sleep last night. When this bid writer offered either Ambien or Sonata, the patient refused to be on that medication. The patient does not allow this bid writer to talk to her family. Meanwhile, the patient appears to be comfortable. She is not agitated, not aggressive. VITAL SIGNS: Reviewed. MEDICATIONS Reviewed. This bid writer will increase the dose of Seroquel to 25 mg in the morning time and the night time. The patient is on Paxil 20 mg daily. The patient is on Xanax 0.25 mg as needed for every 4 hours. LABORATORY DATA: Labs reviewed. Chemistry reviewed. Urinalysis reviewed. Microbiology; urine positive for staph aureus. CONSULTATIONS: The patient would be seen by Infectious Disease. Physical Therapy recommended the patient was seen by Dr. Hampton, neurologist. MENTAL STATUS EXAMINATION: The patient presented mildly disorganized. The patient has lip smacking. The patient has long history of tardive dyskinesia. The patient is mildly paranoid towards her family and did not allow this bid writer to contact her family. IMPRESSION: As per history of schizophrenia. The patient has tardive dyskinesia for the past 20 to 30 years. PLAN: Seroquel was increased to 25 mg twice a day because the patient has impression that she was mistreated by her family and mildly disorganized and paranoid. Xanax as needed. We will follow up and advise accordingly. As per primary team, the patient most likely would need long-term placement or subacute rehab at the present decision of the family. Physical therapy recommended. Should you have any questions give me a call back. Leigh Gomez MD
--- NOTE | 2018-06-06 22:03 | CP.PCM.CON ---
History of Present Illness - History of Present Illness History of Present Illness: 67 year old female with PMH of tardive dyskinesia, severe COPD, osteoarthritis, depression, schizophrenia, PTSD came in to [facility] because of several falls over the past few weeks. The patient has also lacerated her scalp because of the falls, but has no loss of consciousness. She is for further work up of the falls. Part of the work up included urine cx, patient was complaining of urinary frequency. She denies headache, no nausea or vomiting, no chest pain, no SOB, no cough or rhinorrhea, no diarrhea. Urine cx is showing bacteria. Infectious Diseases consult is requested to further evaluate and manage. Review of Systems - Review of Systems All systems: reviewed and no additional remarkable complaints except (as per HPI) Past Patient History - Infectious Disease Hx of Infectious Diseases: None - Tetanus Immunizations Tetanus Immunization: Unknown - Past Social History Smoking Status: Never Smoked - CARDIAC Hx Cardiac Disorders: No - PULMONARY Hx Chronic Obstructive Pulmonary Disease (COPD): Yes - NEUROLOGICAL Other/Comment: Ataxia - HEENT Hx HEENT Problems: No - RENAL Hx Chronic Kidney Disease: No - ENDOCRINE/METABOLIC Hx Endocrine Disorders: No - HEMATOLOGICAL/ONCOLOGICAL Hx Blood Disorders: No - INTEGUMENTARY Hx Dermatological Problems: No - MUSCULOSKELETAL/RHEUMATOLOGICAL Hx Arthritis: Yes - GASTROINTESTINAL Hx Gastrointestinal Disorders: No - GENITOURINARY/GYNECOLOGICAL Hx Genitourinary Disorders: No - PSYCHIATRIC Hx Psychophysiologic Disorder: Yes (smoker) Hx Anxiety: Yes Hx Depression: Yes Hx Schizophrenia: Yes - SURGICAL HISTORY Hx Amputation: No Hx Appendectomy: No Hx Cholecystectomy: No Hx Gastric Bypass Surgery: No Hx Joint Replacement: No Hx Kidney Transplant: No Hx Liver Transplant: No Hx Mastectomy: No Hx Musculoskeletal Surgery: No Hx Open Heart Surgery: No Hx Orthopedic Surgery: No Hx Splenectomy: No - ANESTHESIA Hx Anesthesia Reactions: No Hx Malignant Hyperthermia: No Meds Allergies/Adverse Reactions: Allergies Allergy/AdvReac Type Severity Reaction Status Date / Time codeine Allergy RASH Verified 02/28/18 20:30 flu shot Allergy RASH Uncoded 02/28/18 20:30 - Medications Medications: Current Medications Acetaminophen (Tylenol 325mg Tab) 650 mg PO Q6H PRN PRN Reason: Fever >100.4 F Acetaminophen (Tylenol 325mg Tab) 650 mg PO Q6H PRN PRN Reason: Pain, Mild (1-3) Last Admin: 06/06/18 09:49 Dose: 650 mg Alprazolam (Xanax) 0.25 mg PO Q4 PRN; Protocol PRN Reason: Anxiety Stop: 06/13/18 20:01 Last Admin: 06/06/18 18:42 Dose: 0.25 mg Aspirin (Ecotrin) 81 mg PO DAILY [facility] Last Admin: 06/06/18 09:49 Dose: 81 mg Benztropine Mesylate (Cogentin) 1 mg PO BID [facility] Last Admin: 06/06/18 17:05 Dose: 1 mg Cefepime HCl (Maxipime 1gm) 1 gm in 100 mls @ 100 mls/hr IVPB Q12 [facility]; Protocol Last Admin: 06/06/18 14:47 Dose: 100 mls/hr Nicotine (Nicoderm Cq) 1 patch TD DAILY [facility] Last Admin: 06/06/18 18:41 Dose: 1 patch Paroxetine HCl (Paxil) 20 mg PO DAILY [facility] Last Admin: 06/06/18 09:49 Dose: 20 mg Quetiapine Fumarate (Seroquel) 25 mg PO AMHS [facility]; Protocol Physical Exam - Constitutional Appears: Chronically Ill - Head Exam Head Exam: NORMAL INSPECTION - Respiratory Exam Respiratory Exam: Decreased Breath Sounds - Cardiovascular Exam Cardiovascular Exam: +S1, +S2 - GI/Abdominal Exam GI & Abdominal Exam: Soft. absent: Tenderness Results - Vital Signs Recent Vital Signs: Last Vital Signs Temp 97.9 F 06/06/18 06:00 Pulse 75 06/06/18 06:00 Resp 16 06/06/18 06:00 BP 108/72 06/06/18 06:00 Pulse Ox 100 06/06/18 06:00 - Labs Result Diagrams: 06/03/18 20:55 06/03/18 20:55 Assessment & Plan - Assessment and Plan (Free Text) Plan: Assessment consier UTI tardive dyskinesia severe COPD osteoarthritis depression schizophrenia PTSD Plan started Cefepime and will follow up urine cx will monitor clinically
--- NOTE | 2018-06-07 08:05 | CON ---
DATE: 06/06/2018 ORTHOPEDIC CONSULTATION HISTORY OF PRESENT ILLNESS: The patient is a 67-year-old female with a left elbow swelling over the olecranon bursa. X-rays are within normal limits. It has a little spur on the olecranon and there is no signs of infection. She has an olecranon bursa with fluid not under pressure, not draining. No signs of infection. So, I will treat her conservatively with a Heelbo padding because this came about by bumping it and she repeatedly bumps it when she falls a lot. So, I will watch her closely. There is no signs of infection, but we will get a CBC, a sedimentation rate and C-reactive protein to make sure. If it does get infected we could compare the lab results. But I will protect her with a padding over the left elbow and try to convince her not to keep bumping the elbow when she falls. FINAL DIAGNOSIS: Non-infected left olecranon bursa, does not need to be drained because it is not under tension. Betito Corrales DO
--- NOTE | 2018-06-07 11:14 | PN ---
DATE: 06/07/2018 SUBJECTIVE: The patient was seen and examined today. There are no changes with the patient's presentation, besides the patient is more alert and more talkative. The patient reports that she wants to walk, but she cannot walk without a walker. The patient reported that she had decent night sleep. The patient denied any thoughts of harming herself or others. The patient is mildly paranoid towards her family, but no agitation or aggression. The patient has severe tardive dyskinesia for the past 20-30 years and the patient was on small dose of Seroquel. Based on report from the nursing staff, the patient ambulates with unsteady gait, but no agitation, no aggression. OBJECTIVE: VITAL SIGNS: Reviewed. Temperature 98.2, pulse is 80, blood pressure 139/86, respirations 17, oxygen saturation is 96. MEDICATIONS Reviewed. Tylenol, Xanax 0.25 mg every 4 hours as needed for anxiety,the patient got only two doses. The patient is on aspirin, Cogentin, Maxipime, Nicoderm, Paxil 20 mg daily, Seroquel 25 mg at the morning time and at the nighttime. LABORATORY DATA: Reviewed. Chemistry reviewed. Urinalysis reviewed. Microbiology reviewed. MENTAL STATUS EXAMINATION: The patient presented to be alert, lip smacking. The patient obviously has severe tardive dyskinesia. Mood described as okay. Affect was reactive. Thought process seems to be circumstantial, tangential thought content. The patient denied any hallucinations, but presented to be paranoid. Insight and judgment seems to be limited. Impulses are well controlled. IMPRESSION: As per history of schizophrenia. Also, the patient has severe tardive dyskinesia for many years. PLAN The patient is on Seroquel twice a day, Cogentin, family involved. The patient has multiple falls in the past. Infectious Disease is following the patient because urinalysis showed staph aureus in the urine. The patient was seen by Dr. Corrales as well. Enterprise Sales Executive are involved. Treatment plan and discharge plan needs to be discussed with the patient's family. This marketing copywriter contacted Dr. Robins, in order to find out what is the plan for the patient awaiting for call back. Should you have any questions give me a call back. Meanwhile, continue Xanax as needed. Thank you very much. Leigh Gomez MD [facility] # [id number]
--- NOTE | 2018-06-07 12:12 | PN ---
DATE: 06/07/2018 SUBJECTIVE: The patient was seen this morning in room 574, bed 1, resting comfortably in bed. Speech is difficult because of her severe tardive dyskinesia. I spoke with the patient at length regarding worsening of her symptoms and ambulation. We are in a difficult situation here because the patient wants to go home and very much wants to be fully ambulatory and walking on [place] as she has for so many years, but with her falling, needing to crawl on the floor at home, and on the sidewalk, this is becoming less and less of an option. We are facing the reality that the time has come that she may need long-term placement. I spoke with the patient's mother late in the evening and she is in agreement. As she herself is 89 years old and in health that is beginning to slowly fail. After the late night talk with the patient's mum, we decided I will come back and talk with the patient on Sunday about long-term placement and care. ASSESSMENT AND PLAN: Incidental note is that I saw on the patient's left elbow, a small scab with draining fluid from a localized cellulitis and possible infected olecranon bursa. We will as orthopedist to evaluate and start intravenous antibiotics. If the erythema does not subside swiftly, may need to call Infectious Disease. Hopefully, this will not result in the need for surgical intervention. Mateusz Robins MD MTDIrina
[2018-06-07] MEDS: Cefepime 1gm in NS 100ml 1 GM/100 ML BAG IVPB SCH ×2 (13:11→21:35)
--- NOTE | 2018-06-07 20:32 | CP.PCM.PN ---
Subjective - Date & Time of Evaluation Date of Evaluation: 06/07/18 Time of Evaluation: 11:40 - Subjective Subjective: No fevers, not in distress. Objective - Vital Signs/Intake and Output Vital Signs (last 24 hours): Temp Pulse Resp BP Pulse Ox 97.9 F 75 16 108/72 100 06/06/18 06:00 06/06/18 06:00 06/06/18 06:00 06/06/18 06:00 06/06/18 06:00 Intake and Output: 06/06/18 06/07/18 18:59 06:59 Intake Total 620 Balance 620 - Medications Medications: Current Medications Acetaminophen (Tylenol 325mg Tab) 650 mg PO Q6H PRN PRN Reason: Fever >100.4 F Acetaminophen (Tylenol 325mg Tab) 650 mg PO Q6H PRN PRN Reason: Pain, Mild (1-3) Last Admin: 06/06/18 09:49 Dose: 650 mg Alprazolam (Xanax) 0.25 mg PO Q4 PRN; Protocol PRN Reason: Anxiety Stop: 06/13/18 20:01 Last Admin: 06/06/18 18:42 Dose: 0.25 mg Aspirin (Ecotrin) 81 mg PO DAILY [facility] Last Admin: 06/06/18 09:49 Dose: 81 mg Benztropine Mesylate (Cogentin) 1 mg PO BID [facility] Last Admin: 06/06/18 17:05 Dose: 1 mg Cefepime HCl (Maxipime 1gm) 1 gm in 100 mls @ 100 mls/hr IVPB Q12 [facility]; Protocol Last Admin: 06/06/18 21:53 Dose: 100 mls/hr Nicotine (Nicoderm Cq) 1 patch TD DAILY [facility] Last Admin: 06/06/18 18:41 Dose: 1 patch Paroxetine HCl (Paxil) 20 mg PO DAILY [facility] Last Admin: 06/06/18 09:49 Dose: 20 mg Quetiapine Fumarate (Seroquel) 25 mg PO AMHS [facility]; Protocol Last Admin: 06/06/18 21:52 Dose: 25 mg - Labs Labs: 06/03/18 20:55 06/03/18 20:55 - Constitutional Appears: Chronically Ill - Head Exam Head Exam: NORMAL INSPECTION - Respiratory Exam Respiratory Exam: Decreased Breath Sounds - Cardiovascular Exam Cardiovascular Exam: +S1, +S2 - GI/Abdominal Exam GI & Abdominal Exam: Soft. absent: Tenderness Assessment and Plan - Assessment and Plan (Free Text) Plan: Assessment consider UTI with MSSA tardive dyskinesia severe COPD osteoarthritis depression schizophrenia PTSD Plan on Cefepime and can switch to PO Keflex when ready for discharge will continue to monitor clinically
--- NOTE | 2018-06-08 07:05 | PN ---
DATE: 06/07/2018 SUBJECTIVE: The patient was seen this Sunday morning in room 577, bed 1. More awake and talkative today; although, her conversation is difficulty to hear because of the severity of her tardive dyskinesia. PHYSICAL EXAMINATION: Essentially unchanged. PLAN: Case was discussed at great length with case management, social studies teacher and nurse practitioners. I spoke with the patient's mother. Our plan will be for long-term placement. I spoke with the patient's mother about family plans and power of customer sales specialist regarding etc., which will need to be developed. Communications with Dr. Abraham from Psychiatry regarding the patient tardive will be looking into some additional possible options for treatment. I spoke with the patient and for the most of the conversation, she was clear, sharp and on target but then over the time she was asking to go on balcony for smoke or to able to go out to take a walk. We will continue to try to keep her focused as we look for placement. Mateusz Robins MD
[2018-06-08] MEDS: Cefepime 1gm in NS 100ml 1 GM/100 ML BAG IVPB SCH (09:41)
--- NOTE | 2018-06-08 11:04 | CP.PCM.PN ---
Subjective - Date & Time of Evaluation Date of Evaluation: 06/08/18 Time of Evaluation: 10:50 - Subjective Subjective: Patient is doing her physical therapy without issues, no fevers. Objective - Vital Signs/Intake and Output Vital Signs (last 24 hours): Temp Pulse Resp BP Pulse Ox 98.2 F 80 17 139/86 96 06/07/18 06:00 06/07/18 06:00 06/07/18 06:00 06/07/18 06:00 06/07/18 06:00 - Medications Medications: Current Medications Acetaminophen (Tylenol 325mg Tab) 650 mg PO Q6H PRN PRN Reason: Fever >100.4 F Acetaminophen (Tylenol 325mg Tab) 650 mg PO Q6H PRN PRN Reason: Pain, Mild (1-3) Last Admin: 06/06/18 09:49 Dose: 650 mg Alprazolam (Xanax) 0.25 mg PO Q4 PRN; Protocol PRN Reason: Anxiety Stop: 06/13/18 20:01 Last Admin: 06/07/18 13:11 Dose: 0.25 mg Aspirin (Ecotrin) 81 mg PO DAILY [facility] Last Admin: 06/07/18 13:11 Dose: 81 mg Benztropine Mesylate (Cogentin) 1 mg PO BID [facility] Last Admin: 06/07/18 17:08 Dose: 1 mg Cefepime HCl (Maxipime 1gm) 1 gm in 100 mls @ 100 mls/hr IVPB Q12 RUDY; Protocol Last Admin: 06/07/18 13:11 Dose: 100 mls/hr Nicotine (Nicoderm Cq) 1 patch TD DAILY [facility] Last Admin: 06/07/18 13:10 Dose: 1 patch Paroxetine HCl (Paxil) 20 mg PO DAILY [facility] Last Admin: 06/07/18 13:10 Dose: 20 mg Quetiapine Fumarate (Seroquel) 25 mg PO AMHS [facility]; Protocol Last Admin: 06/07/18 13:10 Dose: 25 mg - Labs Labs: 06/03/18 20:55 06/03/18 20:55 - Constitutional Appears: Chronically Ill - Head Exam Head Exam: NORMAL INSPECTION - Respiratory Exam Respiratory Exam: Decreased Breath Sounds - Cardiovascular Exam Cardiovascular Exam: +S1, +S2 - GI/Abdominal Exam GI & Abdominal Exam: Soft. absent: Tenderness Assessment and Plan - Assessment and Plan (Free Text) Plan: Assessment consider UTI with MSSA tardive dyskinesia severe COPD osteoarthritis depression schizophrenia PTSD Plan on Cefepime will switch to PO Keflex will continue to monitor clinically
--- NOTE | 2018-06-08 21:00 | PN ---
DATE: 06/08/2018 HOSPITAL COURSE: Patient was seen this Sunday morning in room 577, bed 1, resting comfortably in bed, more talkative as we spoke about our discharge plans. Unfortunately, physical therapy is short handed through the weekend. She did report that she was out of bed in a chair and is walking to the bathroom with the nurses several times a day. We will continue physical therapy and placement as we work on long-term care for this unfortunate woman with worsening severe tardive dyskinesia and multiple falls at home. I communicated with Psychiatry consultants yesterday regarding additional possible treatments for her tardive and will have further discussions in the future. Mateusz Robins MD
[2018-06-09 07:15] LABS: BASO # 0.04 K/mm3 (0.0-2.0); BASO % 0.8 % (0.0-3.0); EOS # 0.3 (0.0-0.7); EOS % 6.3 % (1.5-5.0); LYMPH # 1.3 (1.2-3.4); LYMPH % 25.8 % (22.0-35.0); MEAN CELL VOLUME 87.9 fl (80.0-105.0); MEAN CORPUSCULAR HGB CONC 31.9 g/dl (31.0-37.0); MEAN PLATELET VOLUME 8.4 fl (7.0-11.0); MONO # 0.9 (0.1-0.6); MONO % 16.6 % (1.0-6.0); RBC 4.28 10^6/uL (3.5-6.1); RED CELL DISTRIBUTION WIDTH 14.3 % (11.5-14.5); WHITE BLOOD COUNT 5.1 10^3/uL (4.5-11.0)
[2018-06-09 07:50] LABS: ALB/GLOB RATIO 1.3 (1.1-1.8); ALBUMIN 3.9 g/dL (3.0-4.8); ALT/SGPT 10 U/L (7-56); AST/SGOT 37 U/L (14-36); BLOOD UREA NITROGEN 14 mg/dL (7-21); CALCIUM 9.2 mg/dL (8.4-10.5); GFR NON-AFRICAN AMERICAN > 60
--- NOTE | 2018-06-09 13:48 | CON ---
DATE: 06/08/2018 HISTORY OF PRESENT ILLNESS: I reviewed Dr. Gomez's note and recent progress note on the unit. The patient was intubated at bedside. The patient is fairly cooperative with my introduction and questioning this morning. She is aware of current year and location; however, believes erroneously that it is April. She indicated that she is not feeling good. She is frustrated, she wants to walk and needs to have PT to help her gain her strength. She has not mentioned any paranoia or delusions towards her family and agitation and aggression was not noted on the unit. However, periods of confusion were noted by staff members. The patient's tardive dyskinesia was observed, also observed by this provider and has made communication difficult at times that she can mumble; however, she can respond appropriately and coherently with simple responses. Her insight and judgment appears to be improving; however, at this time she does not appear to be able to care for herself and disposition is currently being determined. Labs and vitals were viewed. MEDICATIONS: Medications were also reviewed. IMPRESSION: As per history schizophrenia and tardive dyskinesia from many years. The patient is probably also likely suffering from illness of delirium. She still has periods of confusion during the day, oriented and aware of current circumstances at this time. PLAN: We will continue with Kate Edmondson at this time. There is no acute indication for changes in her medications, psychiatry will follow peripherally. Please re-consult for any acute changes in presentation. Neema Fuchs MD
--- NOTE | 2018-06-09 15:45 | PN ---
DATE: 06/09/2018 DAILY PROGRESS NOTE SUBJECTIVE: The patient was seen this Sunday morning in room 577, bed 1, resting comfortably in bed in no acute distress. She was able to get out of bed and walk with assistance to the bathroom yesterday, was sitting out of bed in chair and ambulating a bit with physical therapy. I spoke with physical therapist yesterday. His input is greatly appreciated as well as his ability to walk her this weekend. PHYSICAL EXAMINATION: VITAL SIGNS: Remain stable. She is afebrile. Blood pressures is wonderful in the 110-130 over 68-78 range. LABORATORY DATA: Most recent labs done this morning show an H&H of 12 and 37 with a normal white count of 5. Chemistries are acceptable with a BUN and creatinine of 9 and 0.5 which is to be expected with her low muscle mass. Tardive dyskinesia symptoms continue making it difficult for her to talk and understand her speech because of the tongue thrusting. The case was discussed with Orthopedics yesterday. There is no surgical intervention needed for the draining cellulitis of the left elbow and open olecranon bursa which is now closed and appears to be doing very well. IMPRESSION 1. Multiple falls at home due to number 2. 2. Tardive dyskinesia. 3. Cellulitis of the left elbow with number 4. 4. Draining olecranon bursa, now spontaneously sealed. 5. Chronic obstructive pulmonary disease. 6. History and recent tobacco use. 7. Depression, post-traumatic stress disorder and schizo schizoaffective disorder. PLAN: Continue physical therapy. We will talk to case management and social workers tomorrow as we look for long-term placement. Mateusz Robins MD
--- NOTE | 2018-06-10 01:13 | PN ---
DATE: 06/09/2018 SUBJECTIVE: The patient is seen in bed, in no acute distress. PHYSICAL EXAMINATION: VITAL SIGNS: Temperature is 98, blood pressure is 117/60, respiratory rate of 18. HEENT: Unremarkable. NECK: Supple LUNGS: Have decreased breath sounds. HEART: Normal S1, S2. ABDOMEN: Soft. LABORATORY EXAMINATION: Reveals a white count of 5.1, creatinine 0.5. Urinalysis is noted. Urine cultures showed methicillin-sensitive Staph aureus. ASSESSMENT AND PLAN: This is a 67-year-old female seen earlier today with methicillin-sensitive Staphylococcus aureus urinary tract infection. The patient with schizophrenia, depression, osteoarthritis, severe chronic obstructive pulmonary disease. We will order blood cultures to rule out bacteremia from the Staphylococcus aureus to confirm bacteremia. We will review for intravascular devices, in a patient with tardive dyskinesia and chronic obstructive pulmonary disease. No intravascular devices are evident. We will review imaging and order blood cultures. We will follow with you. James Mulligan MD
--- NOTE | 2018-06-10 11:32 | CP.PCM.PCO ---
Additional Comments - Additional Comments Additional Comments: Pt seen and examined at bedside. In no acute distress. Discussed plan of care w/ Dr. Myles Robins. Pending snf placement. Will continue to follow.
--- NOTE | 2018-06-10 14:37 | PN ---
DATE: 06/10/2018 DAILY PROGRESS NOTE SUBJECTIVE: The patient is a 67-year-old woman who was stricken with severe tardive dyskinesia over the past 30 to 40 years. She has been cared for by her mother and family at home. She suffered multiple falls at home. She recently had a 30 day stay at the subacute care facility at [facility]; however, upon returning home she still had several falls, therefore returned to [facility] and was admitted. When seen today, the patient is lying in bed. She offers no complaints. Her physical exam is essentially unremarkable. Her tardive dyskinesia is apparent. The patient's nurse spoke to me earlier today saying that patient at times is rather combative, will not listen. She could be lying in bed suddenly and then jump out of bed and want to walk and not listen to commands to wait for assistance. Also of note is that, she has a low grade urinary tract infection, less than 100,000 colonies of staph aureus. IS RESISTANT TO CIPRO AND LEVEMIR AND IS ALSO RESISTANT TO KEFLEX WHICH THE PATIENT IS RECEIVING, I would consider changing this to Bactrim. At this point, we are continuing to look for long-term placement for the patient as her mother has finally agreed that she is too difficult for the elderly mother to take care of at home. Betito Robins MD MIGUEL ANGEL
--- NOTE | 2018-06-10 22:43 | PN ---
DATE: 06/10/2018 SUBJECTIVE: The patient is in bed in no acute distress, nontoxic. PHYSICAL EXAMINATION VITAL SIGNS: Temperature is 98, blood pressure is 103/60, respiratory 22, heart rate of 77. HEENT: Unremarkable. NECK: Supple. LUNGS: Have decreased breath sounds. HEART: Normal S1, S2. ABDOMEN: Soft, nontender. LABORATORY EXAMINATION: Reveals a white count of 5.1, hemoglobin of 12, BUN of 14, creatinine 0.5. Urinalysis is noted. Microbiology reveals the Staph aureus in the urine, sensitive Staph aureus. Blood cultures are pending. ASSESSMENT AND PLAN: This is a 67-year-old seen earlier today with sensitive Staphylococcus aureus urinary tract in a patient with schizophrenia, depression, osteoarthritis, severe chronic obstructive lung disease, awaiting for blood cultures to rule out Staphylococcus aureus bacteremia. It appears to be no intravascular devices in this patient with tardive dyskinesia and chronic obstructive lung disease. The patient also has had a CT of the cervical spine. Review of the chest x-ray reveals unremarkable. The patient had a CAT scan of the head. CT of the spine, no fracture, severe chronic changes. CT of the head unremarkable. The patient did not have any fevers on this admission. We will check on the blood cultures and the patient is currently on Keflex p.o. James Mulligan MD
--- NOTE | 2018-06-11 14:59 | PN ---
DATE: 06/11/2018 SUBJECTIVE: The patient is in bed, in no acute distress, nontoxic. OBJECTIVE: VITAL SIGNS: Temperature is 97, blood pressure is 103/60, respiratory rate of 20. HEENT: Unremarkable. NECK: Supple. LUNGS: Have decreased breath sounds. HEART: Normal, S1 and S2. ABDOMEN: Soft. LABORATORY EXAMINATION: Reveals a white count of 5.1, hemoglobin of 12, platelets of 304, BUN 14, creatinine 0.5. Urinalysis is noted. Microbiology reveals the urine to have staph aureus. The blood cultures are negative. REVIEW OF ORDERS: Reveals the patient is on Keflex. ASSESSMENT AND PLAN: This is a 67-year-old female who was seen earlier today in 577, bed 1 with sensitive staph aureus urinary tract infection in the patient with the schizophrenia, depression, osteoarthritis, severe chronic obstructive lung disease with negative blood cultures and . At this time, the patient had a CAT scan of the spine and unremarkable, would complete with p.o. Keflex for this sensitive staph aureus urinary tract infection. James Mulligan MD
--- NOTE | 2018-06-11 23:06 | PN ---
DATE: 06/11/2018 The patient was seen this Sunday morning in room 577, bed 1. Lying in bed. Hoping for more physical therapy and ambulation. Physical exam is essentially unchanged. Lungs show good aeration in right and left with decreased breath sounds with COPD. Case was discussed with case management and social human services assistants regarding discharge plans. Information has been sent to a variety of facilities as we look for placement. Mateusz Robins MD
--- NOTE | 2018-06-12 16:38 | PN ---
DATE: 06/12/2018 SUBJECTIVE: The patient is a 67-year-old female with a history of tardive dyskinesia spanning over the past 30-40 years. She had been cared for by her mother and family at home; however, she suffered multiple falls at home. She recently returned home from subacute care facility at [facility]; however, continued to fall frequently, was therefore brought to the hospital and was admitted on 06/03/2018. PHYSICAL EXAMINATION: GENERAL: When seen today, the patient is awake, alert and oriented. She recognized me from a distance. Her tardive dyskinesia is apparent. LUNGS: Clear anteriorly. HEART: Regular. ABDOMEN: Soft and nontender. ASSESSMENT AND PLAN: The patient was complaining that she needed to go to the bank and that no one else could go for her. I explained to the patient that she was not allowed to get out of bed because of her frequent falls and unsteadiness of gait. The patient is continuing on Keflex for urinary tract infection that was found on admission. She is being followed by Dr. Mulligan, the infectious disease specialist. She was evaluated by Dr. Fuchs, the psychiatrist as the patient did have a history of depression and schizophrenia in the past. We are currently seeking long-term placement for the patient, apparently the patient's information has been sent to several facilities and the patient will be transferred as soon as a bed becomes available. Betito Robins MD
--- NOTE | 2018-06-12 22:58 | PN ---
DATE: 06/12/2018 SUBJECTIVE: The patient is in bed in no acute distress, nontoxic. No fevers. PHYSICAL EXAMINATION VITAL SIGNS: Temperature is 97, blood pressure is 108/70, respiratory rate of 20, heart rate of 78. HEENT: Unremarkable. NECK: Supple. LUNGS: Have decreased breath sounds. HEART: Normal S1, S2. ABDOMEN: Soft, nontender. LABORATORY EXAMINATION: Reveals a white count of 5.1, hemoglobin of 12, platelets of 304. Chemistries reveals a BUN of 13, creatinine of 0.5. Urinalysis is noted. Microbiology reveals Staph aureus in the urine. REVIEW OF ORDERS: Reveals the patient to be on Keflex. ASSESSMENT AND PLAN: This is a 67-year-old female who was seen earlier today in 577 with sensitive Staphylococcus aureus urinary tract infection, schizophrenia, depression and osteoarthritis, severe obstructive lung disease and negative cultures, on Keflex for urinary tract infection and complete a short course therapy. Blood cultures are negative. James Mulligan MD
[2018-06-13 15:38] VITALS: BP 112/72; PULSE 84; RESP 18; TEMP 98.3; O2SAT 93
--- NOTE | 2018-06-13 22:21 | PN ---
DATE: 06/13/2018 SUBJECTIVE: The patient is seen in bed, in no acute distress, and nontoxic. PHYSICAL EXAMINATION: VITAL SIGNS: Temperature is 98, blood pressure is 112/70, and respiratory rate is 18. HEENT: Unremarkable. NECK: Supple. LUNGS: Decreased breath sounds. HEART: Normal S1 and S2. LABORATORY DATA: Reveals a white count of 8.9 and hemoglobin of 12. Chemistries are noted. Microbiology is reviewed. ASSESSMENT AND PLAN: This is a 67-year-old female who was seen early this morning in room 537, bed 1, sensitive to Staphylococcus aureus urinary tract infection, schizophrenia, depression, osteoarthritis, and severe obstructive lung disease. Currently, now off of antibiotics, for possible discharge. James Mulligan MD
== END 2018-06-13 17:02 | DRG 92 ==
LOC: ED 20:15 → ERH 22:35 → 5RSO 06-04 00:49
PROVIDERS: ADMIT Internal Medicine; ATTEND Internal Medicine
DX: G24.01 Drug induced subacute dyskinesia (principal); N39.0 Urinary tract infection, site not specified; Z68.1 Body mass index [BMI] 19.9 or less, adult; L03.114 Cellulitis of left upper limb; E86.0 Dehydration; R62.7 Adult failure to thrive; B95.61 Methicillin susceptible Staphylococcus aureus infection as the cause of diseases classified elsewhere; R29.6 Repeated falls; F25.9 Schizoaffective disorder, unspecified; J44.9 Chronic obstructive pulmonary disease, unspecified; F43.10 Post-traumatic stress disorder, unspecified; M19.90 Unspecified osteoarthritis, unspecified site; Z16.23 Resistance to quinolones and fluoroquinolones; Z91.81 History of falling; Z87.891 Personal history of nicotine dependence